=== PATIENT | female | born 1960 | race Caucasian/White ===

== ENCOUNTER 2024-05-11 15:02 | Inpatient (IN) | payer MEDICARE, SELFPAY ==
[2024-05-11 15:03] VITALS: BP 104/65; PULSE 114; RESP 15; TEMP 37.2; O2SAT 94
[2024-05-11 15:04] VITALS: PULSE 113; RESP 20; O2SAT 95; BMI 21.2
[2024-05-11 16:33] VITALS: PULSE 104; RESP 20; O2SAT 95
--- NOTE | 2024-05-11 16:37 | PD.EDRME ---
Rapid Medical Screening Exam RME Arrival date/time: 05/11/24 15:02 This is a 63-year-old female that comes in with complaints of weakness, diarrhea, fever, headache, cough, dizziness, and congestion. Symptoms started about 4 days ago. Patient states it is hard for her to walk because she does not feel steady on her feet. Patient has had history of hypothyroidism, high blood pressure, and carpal tunnel. Patient denies chest pain and shortness of breath. I have greeted and performed a focused initial assessment of this patient. Initial appropriate labs ordered at this time. A comprehensive ED assessment and evaluation of the patient and analysis of all test and completion of medical decision making process will be conducted by additional ED provider. Chief Complaint: Weakness Time Seen by Provider: 05/11/24 16:29 Vital signs: Vital Signs Temperature 98.9 F 05/11/24 15:03 Pulse Rate 114 H 05/11/24 15:03 Respiratory Rate 15 05/11/24 15:03 Blood Pressure 104/65 05/11/24 15:03 Pulse Oximetry (%) 94 L 05/11/24 15:03 Oxygen Delivery Method Room Air 05/11/24 15:03
--- NOTE | 2024-05-11 16:39 | XR_ITS ---
Examination: PA lateral chest 2 views Technique: Upright PA lateral chest 2 views Exam date and time: May 11, 2024 1708 hrs. Indications: Onset chest pain today. Findings: The patient's prominent pectus deformity accentuates the left ventricular contour No pneumonia or pulmonary edema The osseous structures otherwise are intact Impression: No pneumonia or pulmonary edema
[2024-05-11 17:07] LABS: Basophils # (Auto) 0.1 Thou/mm3 (0.0-0.2); Basophils % (Auto) 1 % (0-2.5); Eosinophils % (Auto) 0 % (0-10); Hematocrit 38.8 % (36.0-46.0); Hemoglobin 14.3 g/dL (12.0-16.0); Immature Granulocytes % (Auto) 1 % (0-0); Immature Granulocytes Auto 0.05 Thou/mm3 (0.00-0.00); Lymphocytes % (Auto) 14 % (10-50); Mean Corpuscular HGB Conc 36.9 g/dl (31.0-37.0); Mean Corpuscular Hemoglobin 33.3 pg (25.0-35.0); Mean Corpuscular Volume 90 fL (80-100); Monocytes # (Auto) 0.8 Thou/mm3 (0.0-0.8); Monocytes % (Auto) 12 % (0-12); Neutrophils # (Auto) 5.1 Thou/mm3 (1.8-7.7); Neutrophils % (Auto) 73 % (37-80); Nucleated Red Blood Cell % 0 /100 WBC (0); Platelet Count 170 Thou/mm3 (140-440); RDW Standard Deviation 40.8 fL (36.4-46.3); Red Blood Count 4.29 Miln/mm3 (4.00-5.20)
[2024-05-11 17:18] LABS: Alanine Aminotransferase 31 U/L (10-49); Albumin, Serum 4.8 gm/dL (3.4-4.8); Albumin/Globulin Ratio 1.5 (1.2-2.2); Alkaline Phosphatase 64 U/L (46-116); Anion Gap 8 (7-16); Aspartate Amino Transferase 71 U/L (0-34); BUN/Creatinine Ratio 18 Ratio (12-20); Bilirubin,Total 0.5 mg/dL (0.3-1.2); Blood Urea Nitrogen 18 mg/dL (9-23); Calcium 9.2 mg/dL (8.3-10.6); Calcium (Corrected) 9.2 mg/dL (8.5-10.1); Carbon Dioxide 23.9 mMol/L (20.0-31.0); Chloride 88 mMol/L (98-107); Estimated Creatinine Clearance 46.1 mL/min (>60); Globulin 3.1 gm/dL (2.3-3.5); Glucose 118 mg/dL (74-106); Osmolality,Calculated 245 (275-295); Potassium 3.4 mMol/L (3.4-5.1); Sodium 120 mMol/L (136-145); Total Protein 7.9 gm/dL (5.7-8.2); Troponin I < 0.020 ng/mL (0.0-0.045); eGFR > 60 See Note
[2024-05-11 18:05] LABS: B-Type Natriuretic Peptide 26 pg/mL (0-100)
[2024-05-11 19:48] LABS: Collection Type, Urine Voided
[2024-05-11 20:07] LABS: Bacteria,Urine 1+; Bilirubin,Urine Negative (Negative); Blood,Urine 1+ (Negative); Clarity,Urine Turbid (Clear/Hazy); Color,Urine Yellow (Lt Yel-Yel); Culture Indicated,Urine Contaminated; Glucose, Urine Negative (Negative); Hyaline Casts,Urine < 1 /hpf (0-1); Ketones,Urine Negative (Negative); Leukocyte Esterase,Urine Positive (Negative); Nitrite,Urine Negative (Negative); PH,Urine 5.5 (5.0-7.0); Protein,Urine 2+ (Neg - Trace); RBC,Urine 35 /hpf (0-3); Squamous Epithelial Cell,Urine 32 /hpf (0-5); Urobilinogen,Urine Negative mg/dL (0.0-1.0); WBC,Urine 107 /hpf (0-5)
[2024-05-11 20:14] LABS: Amphetamine/Methamp Scrn,U Negative (Negative); Barbiturate Screen,Urine Negative (Negative); Benzodiazepines Screen,Urine Negative (Negative); Benzoylecgonine Screen, Ur Negative (Negative); Fentanyl Screen,Urine Negative (Negative); Opiate Screen,Urine Negative (Negative); THC Screen,Urine Negative (Negative)
--- NOTE | 2024-05-11 20:55 | XR_ITS ---
Examination: CT brain head without contrast. 2-D sagittal coronal reconstructions Date and time of exam:May 11, 2024 2117 hrs. Indications: Onset headaches and balance difficulties dizziness hand numbness difficulty walking 4 days CTDI: vol (mGy):44.88 DLP: (mGycm):899 Technique: Multiple CT axial sections of the brain have been obtained, 5 mm slice thickness. Contrast has not been administered. 2-D sagittal, coronal reconstructions have been obtained Low dose protocols were performed. One or more of the following dose reduction techniques were used; automated exposure control, adjustment of the mA and/or KV according to patient size, use of iterative reconstruction technique. Findings: No significant ventricular enlargement. Intra-axial or extra-axial hemorrhage density is not seen. No mass effect or midline shift Basal cisterns are not remarkable. Fourth ventricle is midline. Cranial vault intact. Impression: Negative for acute hemorrhage, mass effect or midline shift If symptoms persist, consider brain MRI follow-up, stroke protocol
--- NOTE | 2024-05-11 20:56 | EDNOTE_ITS ---
ED General RME/HPI General Chief complaint: Weakness Stated complaint: WEAKNESS Time Seen by Provider: 05/11/24 16:29 Arrival date/time: 05/11/24 15:02 CC: Weakness, unsteady gait HPI ongoing for the past 4 days denies shortness of breath or difficulty but states she has had an intermittent fever at home denies any neck stiffness intermittent headache when she coughs. Patient still continues to smoke a pack to a pack and a half of cigarettes a day x 50 years. Patient denies any painful urination bloody urination chest pain shortness of breath or difficulty breathing. RME / HPI RME / HPI narrative: 05/11/24 15:02 This is a 63-year-old female that comes in with complaints of weakness, diarrhea, fever, headache, cough, dizziness, and congestion. Symptoms started about 4 days ago. Patient states it is hard for her to walk because she does not feel steady on her feet. Patient has had history of hypothyroidism, high blood pressure, and carpal tunnel. Patient denies chest pain and shortness of breath. I have greeted and performed a focused initial assessment of this patient. Initial appropriate labs ordered at this time. A comprehensive ED assessment and evaluation of the patient and analysis of all test and completion of medical decision making process will be conducted by additional ED provider. Review of Systems Review of Systems Narrative Review of Systems: GEN: No fever, no chills, no weight loss EYES: No discharge, no visual changes, no pain HEENT: No ear pain, no congestion, no sore throat PULM: No shortness of breath, no cough, no congestion CV: No chest pain, no dyspnea on exertion, no palpitations GI: No nausea, no vomiting, no diarrhea, no pain, no constipation : No frequency, no urgency, no dysuria MUSC/SKEL: No joint pain, no back pain SKIN: No rash PSYCH: No hallucinations, no depression HEME/LYMPH: No easy bleeding or bruising tendencies NEURO: + weakness, no headache Past Medical History Social History SMOKING STATUS: Current every day smoker ED Exam Narrative Physical exam: [General: Thin but not emaciated not in any acute distress Head normocephalic HEENT: Eyes pupils are PERRLA EOMs intact nose no rhinorrhea epistaxis mouth pink dry membranes uvula is midline symmetrical swallow phonation is normal all other subsystems of HEENT are within acceptable limits Neck is supple nontender Chest equal chest rise nontender to palpation Respiratory: Clear to auscultation no wheezes crackles or rubs CV: Rate rhythm is regular no murmurs rubs or clicks Abdomen is soft nontender no masses positive bowel sounds all 4 quadrants Back: No CVA tenderness no spinous process tenderness from cervical spine thoracic and lumbar spine Skin: Intact no petechiae rash induration ulceration or crepitus Extremities: Moving all extremity against resistance cap refill less than 2 seconds neurosensory intact Neuro: Awake alert oriented x3 Glascow coma 15 no focal deficits] Course Course Course Narrative: Patient is laboratories all to clinic finding discussed with resident for Dr. Trevino who agrees to accept the patient for admission Quality Measures none Orders Category Date Time Status EKG (ED ONLY) *Do not use* NOW Care 05/11/24 16:39 Completed Saline [Insert IV] NOW Care 05/11/24 20:[address] head/brain wo con Stat Exams 05/11/24 20:55 Completed EKG (ED Only) Stat Exams 05/11/24 16:39 Ordered XR chest 2V Stat Exams 05/11/24 16:39 Completed BNP [B-Type Natriuretic Peptide] Stat Lab 05/11/24 16:54 Completed CBC Stat Lab 05/11/24 16:54 Completed Comprehensive Metabolic Panel Stat Lab 05/11/24 16:54 Completed Drug Screen,Urine Stat Lab 05/11/24 19:40 Completed TSH [Thyroid Stimulating Hormone] Stat Lab 05/11/24 20:58 Ordered Troponin I Stat Lab 05/11/24 16:54 Completed Urinalysis, C/S if Indicated Stat Lab 05/11/24 19:40 Completed Sodium Chloride 0.9% 1000 ml [Ns] 1,000 ml Med 05/11/24 20:48 Active IV 30 mls/hr cefTRIAXone/D5w 1gm IV premix [Rocephin/D5w 1gm IV Med 05/11/24 20:48 Discontinued premix] 50 ml IV X1 Vital Signs Vital signs: Vital Signs Temperature 98.9 F 05/11/24 15:03 Pulse Rate 114 H 05/11/24 15:03 Respiratory Rate 15 05/11/24 15:03 Blood Pressure 104/65 05/11/24 15:03 Pulse Oximetry (%) 94 L 05/11/24 15:03 Oxygen Delivery Method Room Air 05/11/24 15:03 [facility] Patient data External records reviewed:: [facility] previous records Clinical information provided by:: patient Social determinants that could affect healthcare access:: none Patient has the following chronic illnesses:: Hypothyroidism How is presenting disease/condition affected by chronic disease/condition?: u neffected by Evaluation data The following diagnostics were reviewed and interpreted by me:: lab results and radiology exam(s) Lab and/or radiology exams considered but not ordered:: CBC shows no acute leukocytosis anemia thrombocytopenia CMP shows a sodium of 120 potassium 3.4 chloride of 88 CO2 of 23.9 BUN of 18 creatinine of 1.0 glucose of 118 No transaminitis or T. bili elevation Troponin is negative BNP is negative Chest x-ray as interpreted by me and read by radiology as negative for any acute finding Urine is positive for urinary tract infection. Interpretation Summary: Significant hyponatremia with UTI Medications Medications considered but not ordered:: None Medication administrations:: Medication Administration History Sodium Chloride (Ns) 1,000 mls @ 30 mls/hr IV .Q24H BRIE Stop: 05/12/24 20:47 Discontinued Medications Ceftriaxone Sodium/Dextrose (Rocephin/D5w 1gm Iv Premix) 50 mls @ 100 mls/hr IV X1 ONE Stop: 05/11/24 21:17 None Consultations Consultation(s) initiated? (list below): No Diagnosis Differential Diagnosis ED Complaint MDM: Hyponatremia UTI hydrocephalus Most likely diagnosis given after review of the tests above:: Hyponatremia UTI Admission Indicated Admission indicated?: indicated Explain why admission is indicated or not indicated:: Requires further medical management Admission Request Was there a request for admission?: No Disposition Plan Disposition Plan: Admit Medical Decision Making Differential Diagnosis Differential Diagnosis: Hyponatremia UTI hydrocephalus Lab Data 05/11/24 16:54 05/11/24 16:54 Labs: Lab Results 05/11/24 05/11/24 Range/Units 16:54 19:40 WBC 7.0 (3.6-11.0) Thou/mm3 RBC 4.29 (4.00-5.20) Miln/mm3 Hgb 14.3 (12.0-16.0) g/dL Hct 38.8 (36.0-46.0) % MCV 90 (80-100) fL MCH 33.3 (25.0-35.0) pg MCHC 36.9 (31.0-37.0) g/dl RDW Std Deviation 40.8 (36.4-46.3) fL Plt Count 170 (140-440) Thou/mm3 Neut % (Auto) 73 (37-80) % Lymph % (Auto) 14 (10-50) % Mccormick % (Auto) 12 (0-12) % Eos % (Auto) 0 (0-10) % Baso % (Auto) 1 (0-2.5) % Neut # (Auto) 5.1 (1.8-7.7) Thou/mm3 Lymph # (Auto) 1.0 (1.0-4.8) Thou/mm3 Mccormick # (Auto) 0.8 (0.0-0.8) Thou/mm3 Eos # (Auto) 0.0 (0.0-0.5) Thou/mm3 Baso # (Auto) 0.1 (0.0-0.2) Thou/mm3 Immature Gran # (Auto) 0.05 H (0.00-0.00) Thou/mm3 Absolute Nucleated RBC 0.00 (0.00-0.00) Thou/mm3 Immature Gran % 1 H (0-0) % Nucleated RBC % 0 (0) /100 WBC Sodium 120 L (136-145) mMol/L Potassium 3.4 (3.4-5.1) mMol/L Chloride 88 L (98-107) mMol/L Carbon Dioxide 23.9 (20.0-31.0) mMol/L Anion Gap 8 (7-16) BUN 18 (9-23) mg/dL Creatinine 1.0 (0.6-1.3) mg/dL Estim Creat Clear Calc 46.1 L (>60) mL/min eGFR > 60 (60 - ) See Note BUN/Creatinine Ratio 18 (12-20) Ratio Glucose 118 H (74-106) mg/dL Calculated Osmolality 245 L (275-295) Calcium 9.2 (8.3-10.6) mg/dL Corrected Calcium 9.2 (8.5-10.1) mg/dL Total Bilirubin 0.5 (0.3-1.2) mg/dL AST 71 H (0-34) U/L ALT 31 (10-49) U/L Alkaline Phosphatase 64 (46-116) U/L Troponin I < 0.020 (0.0-0.045) ng/mL B-Natriuretic Peptide 26 (0-100) pg/mL Total Protein 7.9 (5.7-8.2) gm/dL Albumin 4.8 (3.4-4.8) gm/dL Globulin 3.1 (2.3-3.5) gm/dL Albumin/Globulin Ratio 1.5 (1.2-2.2) TSH Cancelled Ur Collection Type Voided Urine Color Yellow (Lt Yel-Yel) Urine Clarity Turbid A (Clear/Hazy) Urine pH 5.5 (5.0-7.0) Ur Specific [place] 1.020 (1.001-1.035) Urine Protein 2+ A (Neg - Trace) Urine Glucose (UA) Negative (Negative) Urine Ketones Negative (Negative) Urine Blood 1+ A (Negative) Urine Nitrite Negative (Negative) Urine Bilirubin Negative (Negative) Urine Urobilinogen (Auto) Negative (0.0-1.0) mg/dL Ur Leukocyte Esterase Positive (Negative) Urine RBC 35 H (0-3) /hpf Urine WBC 107 H (0-5) /hpf Ur Squamous Epith Cells 32 H (0-5) /hpf Urine Bacteria 1+ A (None) Hyaline Casts < 1 (0-1) /hpf Ur Culture Indicated? Contaminated Urine Opiates Screen Negative (Negative) Urine Fentanyl Screen Negative (Negative) Ur Barbiturates Screen Negative (Negative) U Amphetamin/Meth Scrn Negative (Negative) U Benzodiazepines Scrn Negative (Negative) U Cocaine Metab Screen Negative (Negative) U Marijuana (THC) Screen Negative (Negative) Discharge Plan Plan Patient Disposition: Other Care w/in Hosp ([facility]) Patient condition on transfer: Stable Prescriptions/Referrals Referrals: Gopi Garcia DO [Primary Care Provider] - In 1 week Problem List Clinical Impression: Hyponatremia, UTI (urinary tract infection) Patient/Caregiver Discharge Instructions Print Language: Ethiopian Stand Alone Forms: Pita Award Info., Patient Portal Info Letter PA/DIAGNOSTIC IMAGING MANAGER Supervising Physician PA/DIAGNOSTIC IMAGING MANAGER Supervising Physician: Chato Bobby ENP
--- NOTE | 2024-05-11 22:34 | PD.RESHP ---
Documentation for date of: 05/11/24 [facility] History of Present Illness History of present illness: The patient is a 64-year-old female with a past medical history of hypertension and hypothyroidism status post thyroidectomy presented to the ED on 05/11/2024 with a 4-day history of generalized weakness. Per patient, she was in her usual state of health until about 4 days ago when she noticed that she got progressively weaker, starting her arms associated with some numbness, causing her to drop things and being unable to hold certain things. As she got progressively weaker, he started involving her legs and she has been unable to walk about 3 days. Prior to this, patient was ambulating independently and was able to perform all activities of daily living by herself. She endorses occasional headaches and lightheadedness but denies nausea vomiting, abdominal pain, diarrhea or dysuria. She also denies loss of sensation or any visual or auditory changes. ED course: The ED, patient was afebrile, normotensive however tachycardic and saturating 95% on room air. Chest x-ray was done which was negative as well as head CT. Labs are significant for sodium of 120 with osmolality of 245 and low chloride of 88, glucose 118, AST 71. UA showed turbid urine with 2+ protein and 1+ blood, 3-5 RBCs, 107 WBCs and 1+ bacteria. U-Tox was negative. The patient has been admitted for management of moderate hyponatremia. PMHx-hypertension, hypothyroidism PSHx-thyroidectomy Social history- smokes a pack of cigarettes a day, drinks a couple beers daily, no illicit drugs Home meds- Losartan-HCTZ, Levothyroxine Review of Systems Review of Systems Narrative Review of Systems: GENERAL: Admits generalized weakness HEENT: Denies headache or visual/hearing changes. Denies nasal discharge. NEURO: Admits unusual weakness but denies difficulty speaking. CARDIO: Denies chest pain or palpitations. PULM: Denies SOB, coughing, or wheezing. GI: Denies abdominal pain, N/V/C/D/reflux/gas, bright red blood per rectum or melena. Reports having BMs. URO: Denies burning/itching/pain/urinary changes. MSK/EXT/SKIN: Denies joint/skeletal/muscle pain, issues/changes in upper or lower extremities, itchiness, or superficial pain. Exam Vital Signs Temp Pulse Resp BP Pulse Ox O2 Del Method 98.9 F 104 H 20 104/65 95 Room Air 05/11/24 15:03 05/11/24 16:33 05/11/24 16:33 05/11/24 15:03 05/11/24 16:33 05/11/24 16:33 Narrative Exam GENERAL: AAOX3 NEURO: Able to move extremities x 4, 4-/5 strength in right lower extremity and 4+ out of 5 strength in right lower extremity, intact reflexes, no loss of sensation. HEENT: Moist mucosa. Eyes open, symmetrical, & clear CARDIO: No chest pain on palpation. Heart RRR, no obvious murmurs PULM: No noted coughing/dyspnea. Lungs CTA B/L GI: Abdomen soft, nondistended, no pain on palpation. BSx4 URO/ALTERNATIVE MEDICINE PRACTITIONER:: No further abnormalities noted. SKIN/MSK/EXT: No wounds/rashes/edema/amputations, no pain on palpation. Pedal pulses present B/L Results: Labs 05/11/24 16:54 05/11/24 16:54 Labs: Short CBC 05/11/24 Range/Units 16:54 WBC 7.0 (3.6-11.0) Thou/mm3 Hgb 14.3 (12.0-16.0) g/dL Hct 38.8 (36.0-46.0) % Plt Count 170 (140-440) Thou/mm3 [facility] 05/11/24 16:54 Sodium 120 L Potassium 3.4 Chloride 88 L Carbon Dioxide 23.9 BUN 18 Creatinine 1.0 Glucose 118 H Calcium 9.2 Cardiac Enzymes 05/11/24 Range/Units 16:54 Troponin I < 0.020 (0.0-0.045) ng/mL Liver Function 05/11/24 Range/Units 16:54 Total Bilirubin 0.5 (0.3-1.2) mg/dL AST 71 H (0-34) U/L ALT 31 (10-49) U/L Alkaline Phosphatase 64 (46-116) U/L Albumin 4.8 (3.4-4.8) gm/dL Urine 05/11/24 Range/Units 19:40 Urine Color Yellow (Lt Yel-Yel) Urine Clarity Turbid A (Clear/Hazy) Urine pH 5.5 (5.0-7.0) Ur Specific [place] 1.020 (1.001-1.035) Urine Protein 2+ A (Neg - Trace) Urine Glucose (UA) Negative (Negative) Quality Measures Quality Measures none Medications Home Medications and Allergies Allergies Allergy/AdvReac Type Severity Reaction Status Date / Time No Known Allergies Allergy Verified 05/11/24 22:30 Visit Medications Acetaminophen (Acetaminophen 325 Mg Tablet) 650 mg PO Q6H PRN PRN Reason: Pain 1-3 or Fever >100.3 Stop: 06/10/24 22:20 Heparin Sodium (Porcine) (Heparin Sod Inj 5000 Unit/Ml Vial) 5,000 unit SC Q12HR BRIE Stop: 05/26/24 08:59 Sodium Chloride (Ns) 1,000 mls @ 30 mls/hr IV .Q24H BRIE Stop: 05/12/24 20:47 Ondansetron HCl (Ondansetron Inj 2 Mg/Ml Inj 2 Ml) 4 mg IV Q6H PRN; Protocol PRN Reason: NAUSEA OR VOMITING Stop: 06/10/24 22:20 Sennosides (Senna Tablet) 1 tab PO QDAY BRIE; Protocol Stop: 06/11/24 08:59 Discontinued Medications Ceftriaxone Sodium/Dextrose (Rocephin/D5w 1gm Iv Premix) 50 mls @ 100 mls/hr IV X1 ONE Stop: 05/11/24 21:17 Assessment & Plan Assessment Summary: The patient is a 64-year-old female with a past medical history of hypertension and hypothyroidism status post thyroidectomy who presented to the ED on 05/11/2024 with a 4-day history of generalized weakness. #Generalized weakness #Moderate hyponatremia The patient presented with 4-day history of generalized weakness, initially starting in the upper extremities and progressively to the lower extremities. She reports that she notices that she had some numbness in her arms causing her to drop things unable to hold anything. Prior to this, patient was ambulating independently, she endorsed occasional headaches and lightheadedness but denied nausea vomiting, abdominal pain diarrhea or dysuria. In the ED, patient was afebrile however tachycardic. Chest x-ray and CT head were negative. Labs are significant for hyponatremia of with sodium of 120 and osmolality of 245, glucose at 118. Patient denied drinking excessive amount of water and was euvolemic. For hypertension, patient was on losartan-hydrochlorothiazide. She received 1L of NS in the ED. Plan: -Admit to telemetry -BMP stat -Hold losartan hydrochlorothiazide -Fluid restriction -Sodium check every 4 hours -Urine electrolytes and osmolality -Physical therapy #Asymptomatic bacteriuria On admission, urinalysis reviewed turbid urine with positive esterase, 35 RBC, 107 WBCs, 1+ bacteria. Patient denies dysuria or any other urinary symptoms. She did receive 1 dose of IV ceftriaxone in the ED Plan: -No further intervention #History of hypothyroidism #Status post thyroidectomy The patient has a history of hypothyroidism, had a thyroidectomy about 2 years ago and is on levothyroxine 75 mcg daily. Plan: -TSH -Resume levothyroxine Health maintenance: Dispo: Tele Diet: Cardiac with fluid restriction modification DVT: SC Heparin [place]aval[place]: None Lines: Peripheral Med Rec: Pending, f/u PT: Ordered Code: Full Case was discussed with attending physician, Dr Uriel Feliciano MD PGY-1
[2024-05-11] MEDS: SODIUM CHLORIDE 0.9% 1000 ML 1,000 ML 30 ML IV (22:55)
[2024-05-11] MEDS: cefTRIAXone/D5w 1gm IV premix 50 ML IV (22:56)
[2024-05-11 23:00] VITALS: BP 109/60; PULSE 87; RESP 16; TEMP 37.3; O2SAT 96
[2024-05-11] MEDS: SODIUM CHLORIDE 0.9% 1000 ML 1,000 ML 75 ML IV (23:26)
[2024-05-12] VITALS (12 sets, daily range): BP systolic 108–128; BP diastolic 54–70; PULSE 90–98; RESP 17–98; TEMP 36.8–37.5; O2SAT 93–94; BMI 22.6
[2024-05-12 00:37] LABS: Thyroid Stimulating Hormone 0.52 uIU/mL (0.55-4.78)
[2024-05-12 00:39] LABS: BUN/Creatinine Ratio 14 Ratio (12-20); Blood Urea Nitrogen 20 mg/dL (9-23); Calcium 8.5 mg/dL (8.3-10.6); Carbon Dioxide 21.7 mMol/L (20.0-31.0); Chloride 89 mMol/L (98-107); Creatinine (Component) 1.4 mg/dL (0.6-1.3); Glucose 100 mg/dL (74-106); Potassium 3.6 mMol/L (3.4-5.1); eGFR 43 See Note
[2024-05-12 00:40] LABS: Anion Gap 8 (7-16); Osmolality,Calculated 242 (275-295)
[2024-05-12 00:46] LABS: Sodium 119 mMol/L (136-145)
[2024-05-12 01:15] LABS: Chloride,Urine Random < 20.0 mMol/L (55.0-125.0); Potassium,Urine Random 77 mMol/L (12-62); Sodium,Urine Random < 10.0 mMol/L (20.0-110.0)
[2024-05-12 05:53] LABS: Basophils # (Auto) 0.1 Thou/mm3 (0.0-0.2); Basophils % (Auto) 1 % (0-2.5); Eosinophils # (Auto) 0.1 Thou/mm3 (0.0-0.5); Eosinophils % (Auto) 1 % (0-10); Hematocrit 35.1 % (36.0-46.0); Hemoglobin 12.8 g/dL (12.0-16.0); Immature Granulocytes % (Auto) 1 % (0-0); Immature Granulocytes Auto 0.03 Thou/mm3 (0.00-0.00); Lymphocytes # (Auto) 1.1 Thou/mm3 (1.0-4.8); Lymphocytes % (Auto) 18 % (10-50); Mean Corpuscular HGB Conc 36.5 g/dl (31.0-37.0); Mean Corpuscular Hemoglobin 32.7 pg (25.0-35.0); Mean Corpuscular Volume 90 fL (80-100); Monocytes # (Auto) 0.8 Thou/mm3 (0.0-0.8); Monocytes % (Auto) 13 % (0-12); Neutrophils % (Auto) 67 % (37-80); Nucleated Red Blood Cell % 0 /100 WBC (0); Platelet Count 143 Thou/mm3 (140-440); RDW Standard Deviation 39.5 fL (36.4-46.3); Red Blood Count 3.92 Miln/mm3 (4.00-5.20)
[2024-05-12 06:35] LABS: Alanine Aminotransferase 27 U/L (10-49); Albumin, Serum 4.2 gm/dL (3.4-4.8); Albumin/Globulin Ratio 1.6 (1.2-2.2); Alkaline Phosphatase 54 U/L (46-116); Anion Gap 11 (7-16); Aspartate Amino Transferase 48 U/L (0-34); BUN/Creatinine Ratio 25 Ratio (12-20); Bilirubin,Total 0.3 mg/dL (0.3-1.2); Blood Urea Nitrogen 25 mg/dL (9-23); Calcium 8.1 mg/dL (8.3-10.6); Calcium (Corrected) 8.1 mg/dL (8.5-10.1); Carbon Dioxide 19.3 mMol/L (20.0-31.0); Cardiac Risk Estimate 4.3 RATIO (3.7-5.6); Chloride 91 mMol/L (98-107); Cholesterol 133 mg/dL (132-200); Estimated Creatinine Clearance 46.1 mL/min (>60); Globulin 2.7 gm/dL (2.3-3.5); Glucose 91 mg/dL (74-106); HDL Cholesterol 31 mg/dL (40-60); LDL Cholesterol,Calculated 84 mg/dL (0-130); Magnesium 1.7 mg/dL (1.6-2.6); Osmolality,Calculated 248 (275-295); Phosphorous 3.7 mg/dL (2.4-5.1); Potassium 3.2 mMol/L (3.4-5.1); Sodium 121 mMol/L (136-145); Total Protein 6.9 gm/dL (5.7-8.2); Triglycerides 91 mg/dL (30-150); eGFR > 60 See Note
[2024-05-12 09:53] LABS: Free T4 (Free Thyroxine) 1.04 ng/dL (0.89-1.76)
--- NOTE | 2024-05-12 10:25 | PC.SS ---
Patient is alert/oriented. Patient resides with spouse. Admitted for moderate hyponatremia. Patient states she's independent with ADL's. Patient states she uses [facility]. Patient states her spouse transports her to appointments. Patient follows with Dr. Garcia in [place]. Last appt. was 3 months ago. D/c plan is to return home. Spouse is alt medical decision maker.
[2024-05-12] MEDS: CALCIUM CARBONATE 600 MG TABLET PO (10:36)
[2024-05-12] MEDS: HEPARIN SOD INJ 5000 UNIT/ML VIAL SC ×2 (10:36→20:07)
[2024-05-12] MEDS: SODIUM CHLORIDE 0.9% 1000 ML 1,000 ML 100 ML IV (10:36)
[2024-05-12] MEDS: POTASSIUM CHLORIDE 20 mEq TABCR 40 MEQ PO (10:36)
[2024-05-12] MEDS: SENNA TABLET 1 TAB PO (10:36)
[2024-05-12] MEDS: Magnesium Sulfate 2 GM Ivpb 2 GM/50 ML BAG IV (10:37)
[2024-05-12 10:40] LABS: Anion Gap 11 (7-16); BUN/Creatinine Ratio 26 Ratio (12-20); Blood Urea Nitrogen 23 mg/dL (9-23); Calcium 8.4 mg/dL (8.3-10.6); Calcium (Corrected) 8.4 mg/dL (8.5-10.1); Carbon Dioxide 18.4 mMol/L (20.0-31.0); Chloride 94 mMol/L (98-107); Creatinine (Component) 0.9 mg/dL (0.6-1.3); Estimated Creatinine Clearance 51.3 mL/min (>60); Glucose 98 mg/dL (74-106); Osmolality,Calculated 251 (275-295); Potassium 3.3 mMol/L (3.4-5.1); Sodium 123 mMol/L (136-145); eGFR > 60 See Note
[2024-05-12] MEDS: NICOTINE PATCH 21 MG/24 HR PATCH.TD24 TOP (12:57)
--- NOTE | 2024-05-12 12:58 | ESPR_ITS ---
<Statement entered by Los Dee DO - 05/12/24 17:21> Senior attestation: Patient was examined and case was reviewed with team including attending physician. Note reviewed, I agree with most of its contents and agree with the patient's care. Patient's sodium levels slowly improving, 123 however 120 on last repeat sodium level. Will continue IV fluids and trending sodium levels. Rocephin added for possible urinary tract infection, which may have contributed to patient's initial symptoms. Nicotine patch provided. Los Dee DO PGY-3 Documentation for date of: 05/12/24 Subjective Subjective Interval history: Patient was seen at bedside this morning. No overnight events. Patient stated that she still feels weak, but upon evaluation upper and lower extremity strength was 5 out of 5. Patient also states she does drink daily and was unsure when her last drink was but knows that it was not even a full can of beer prior to admission. She denies any feelings of anxiousness or tremors. Patient sodium up trended to 123. Start patient on Rocephin 1 g daily for UTI. Free T4 was 1.04. Ordered nicotine patch per patient and urine alcohol levels. Exam Vital Signs Temp Pulse Resp BP Pulse Ox O2 Del Method 99.5 F 98 17 108/54 L 93 L Room Air 05/12/24 11:28 05/12/24 11:28 05/12/24 11:28 05/12/24 11:28 05/12/24 11:28 05/12/24 11:28 Narrative Exam General: A/O x3, no acute distress, anxious appearing Eyes: PERRL, EOMI. Anicteric, vision grossly intact. Ears: No ear pain, no ear discharge, Hearing grossly intact. Nose: No nasal discharge. Mouth/Throat: Dry mucous membranes, missing dentation, no redness, no lesions. Neck: Neck supple, non-tender, no cervical lymphadenopathy. Lungs: Clear FRANCIE to auscultation and percussion, No accessory muscle use. Cardio: Normal S1/S2, regular rhythm, no murmurs, no JVD Abdomen: Soft, non-tender, no palpable masses, peristalsis present, no guarding or rebound. Extremities: Symmetrical, no significant deformities, no peripheral edema , non-tender, peripheral pulses presents. Skin: No rashes, no lesions, warm to touch. Neuro: No focal neurological deficits. motor and sensory intact. Psych: anxious Objective Labs 05/14/24 05:00 05/14/24 04:52 Labs: Laboratory Results - last 24 hr 05/11/24 05/11/24 05/11/24 16:54 19:40 22:50 WBC 7.0 RBC 4.29 Hgb 14.3 Hct 38.8 MCV 90 MCH 33.3 MCHC 36.9 RDW Std Deviation 40.8 Plt Count 170 Neut % (Auto) 73 Lymph % (Auto) 14 [place] % (Auto) 12 Eos % (Auto) 0 Baso % (Auto) 1 Neut # (Auto) 5.1 Lymph # (Auto) 1.0 [place] # (Auto) 0.8 Eos # (Auto) 0.0 Baso # (Auto) 0.1 Immature Gran # (Auto) 0.05 H Absolute Nucleated RBC 0.00 Immature Gran % 1 H Nucleated RBC % 0 Sodium 120 L Potassium 3.4 Chloride 88 L Carbon Dioxide 23.9 Anion Gap 8 BUN 18 Creatinine 1.0 Estim Creat Clear Calc 46.1 L eGFR > 60 BUN/Creatinine Ratio 18 Glucose 118 H Calculated Osmolality 245 L Calcium 9.2 Corrected Calcium 9.2 Phosphorus Magnesium Total Bilirubin 0.5 AST 71 H ALT 31 Alkaline Phosphatase 64 Troponin I < 0.020 B-Natriuretic Peptide 26 Total Protein 7.9 Albumin 4.8 Globulin 3.1 Albumin/Globulin Ratio 1.5 Triglycerides Cholesterol LDL Cholesterol, Calc HDL Cholesterol Cholesterol/HDL Ratio TSH Cancelled Free T4 Ur Collection Type Voided Urine Color Yellow Urine Clarity Turbid A Urine pH 5.5 Ur Specific [place] 1.020 Urine Protein 2+ A Urine Glucose (UA) Negative Urine Ketones Negative Urine Blood 1+ A Urine Nitrite Negative Urine Bilirubin Negative Urine Urobilinogen (Auto) Negative Ur Leukocyte Esterase Positive Urine RBC 35 H Urine WBC 107 H Ur Squamous Epith Cells 32 H Urine Bacteria 1+ A Hyaline Casts < 1 Ur Culture Indicated? Contaminated Ur Random Sodium < 10.0 L Ur Random Potassium 77 H Ur Random Chloride < 20.0 L Urine Opiates Screen Negative Urine Fentanyl Screen Negative Ur Barbiturates Screen Negative U Amphetamin/Meth Scrn Negative U Benzodiazepines Scrn Negative U Cocaine Metab Screen Negative U Marijuana (THC) Screen Negative 05/11/24 05/12/24 05/12/24 23:18 05:30 09:53 WBC 6.0 RBC 3.92 L Hgb 12.8 Hct 35.1 L MCV 90 MCH 32.7 MCHC 36.5 RDW Std Deviation 39.5 Plt Count 143 Neut % (Auto) 67 Lymph % (Auto) 18 [place] % (Auto) 13 H Eos % (Auto) 1 Baso % (Auto) 1 Neut # (Auto) 4.0 Lymph # (Auto) 1.1 [place] # (Auto) 0.8 Eos # (Auto) 0.1 Baso # (Auto) 0.1 Immature Gran # (Auto) 0.03 H Absolute Nucleated RBC 0.00 Immature Gran % 1 H Nucleated RBC % 0 Sodium 119 L* 121 L 123 L Potassium 3.6 3.2 L 3.3 L Chloride 89 L 91 L 94 L Carbon Dioxide 21.7 19.3 L 18.4 L Anion Gap 8 11 11 BUN 20 25 H 23 Creatinine 1.4 H 1.0 0.9 Estim Creat Clear Calc 33.0 L 46.1 L 51.3 L eGFR 43 L > 60 > 60 BUN/Creatinine Ratio 14 25 H 26 H Glucose 100 91 98 Calculated Osmolality 242 L 248 L 251 L Calcium 8.5 8.1 L 8.4 Corrected Calcium 8.1 L 8.4 L Phosphorus 3.7 3.0 Magnesium 1.7 Total Bilirubin 0.3 AST 48 H ALT 27 Alkaline Phosphatase 54 Troponin I B-Natriuretic Peptide Total Protein 6.9 Albumin 4.2 D 4.0 Globulin 2.7 Albumin/Globulin Ratio 1.6 Triglycerides 91 Cholesterol 133 LDL Cholesterol, Calc 84 HDL Cholesterol 31 L Cholesterol/HDL Ratio 4.3 TSH 0.52 L Free T4 1.04 Ur Collection Type Urine Color Urine Clarity Urine pH Ur Specific [place] Urine Protein Urine Glucose (UA) Urine Ketones Urine Blood Urine Nitrite Urine Bilirubin Urine Urobilinogen (Auto) Ur Leukocyte Esterase Urine RBC Urine WBC Ur Squamous Epith Cells Urine Bacteria Hyaline Casts Ur Culture Indicated? Ur Random Sodium Ur Random Potassium Ur Random Chloride Urine Opiates Screen Urine Fentanyl Screen Ur Barbiturates Screen U Amphetamin/Meth Scrn U Benzodiazepines Scrn U Cocaine Metab Screen U Marijuana (THC) Screen Quality Measures Quality Measures none Assessment & Plan Assessment Current Active Medications: Generic Name Dose Route Start Last Admin Trade Name Freq PRN Reason Stop Dose Admin Acetaminophen 650 mg 05/11/24 22:21 Acetaminophen 325 Mg Tablet PO 06/10/24 22:20 Q6H PRN Pain 1-3 or Fever >100.3 Heparin Sodium (Porcine) 5,000 unit 05/12/24 09:00 05/12/24 10:36 Heparin Sod Inj 5000 Unit/Ml Vial SC 05/26/24 08:59 5,000 unit Q12HR BRIE Administration Sodium Chloride 1,000 mls @ 100 mls/hr 05/12/24 07:33 05/12/24 10:36 Ns IV 05/12/24 17:32 100 mls/hr .Q10H BRIE Administration Ceftriaxone Sodium/Dextrose 50 mls @ 100 mls/hr 05/12/24 21:00 Rocephin/D5w 1gm Iv Premix IV 05/19/24 20:59 HS BRIE Nicotine 21 mg 05/12/24 12:15 05/12/24 12:57 Nicotine Patch 21 Mg/24 Hr Patch.Td24 TOP 06/11/24 12:14 21 mg QDAY BRIE Administration Ondansetron HCl 4 mg 05/11/24 22:21 Ondansetron Inj 2 Mg/Ml Inj 2 Ml IV 06/10/24 22:20 Q6H PRN NAUSEA OR VOMITING Protocol Sennosides 1 tab 05/12/24 09:00 05/12/24 10:36 Senna Tablet PO 06/11/24 08:59 1 tab QDAY BRIE Administration Protocol Zolpidem Tartrate 5 mg 05/12/24 00:47 Zolpidem 5 Mg Tablet PO 06/11/24 00:46 HS PRN Insomnia Plan 63-year-old female with past medical history of hypertension hypothyroidism s/p thyroidectomy was admitted to hospital on 05/11/2024 due to hypoosmolar hyponatremia associated with generalized weakness. #Hypoosmolar hyponatremia #Generalized weakness ?Patient came in with generalized weakness and a sodium of 120. ? Patient was on the hydrochlorothiazide at home ? DDx medication induced versus SIADH versus dehydration versus beer potomnia versus polydipsia ?Urine electrolytes showed random sodium less than 10, random potassium 77, and random chloride less than 20 Plan: ? Holding hydrochlorothiazide ?Continue normal saline at 100 cc/h ? Renal function panel every 4 ? Sodium goal correction of 4-6 in the first 24 hours with goal of 126 at 16:54 today ? Physical therapy ordered ? Will continue to monitor #UTI ? Patient's UA was positive for bacteria ? There was no leukocytosis or signs of sepsis. Plan: ? Started Rocephin 1 g daily [05/12/2024?] ?Pending urine culture #Hypertension ?Patient's blood pressure has been on the lower end in the 100s over 60s during her hospital stay Plan: Will hold off on any antihypertensive medication for now as patient blood pressure has been well-controlled #Hypothyroidism s/p thyroidectomy ? TSH 0.52 and free T4 1.04 On this admission Plan: ?Will restart patient's levothyroxine 75mcg qday #Alcohol use disorder ? Patient stated that she drinks daily a couple beers ? Patient stated that she had less than 1 can of beer on the day prior to admission. Plan: ? Urine alcohol levels ordered ? Will consider starting CIWA protocol based on urine alcohol levels. #Active Smoker -States smokes 1ppd -Ordered nicotine patch 21 -counseled on importance to quit smoking Disposition: Patient seen in med surg, monitoring Na+ q4h, NS 1L at 100cc/hr. Diet: cardiac GI prophylaxis: not indicated DVT prophylaxis: Heparin sc Code: Full Case disclosed with Attending Dr. Esquivel and My senior Dr. Lambert PGY2 and Dr. Dee PGY3. Durga Calix PGY1 L Ms. Bonilla is a 63-year-old female with past medical history of essential hypertension, hypothyroidism s/p thyroidectomy who was hospitalized on 05/11 for generalized weakness secondary to hypotonic hyponatremia. On admission, patient sodium was 119, with low osmolality. Patient was started on normal saline at 100 cc/h by night team, with every 4 hourly sodium checks. Goal correction 4?6, not crossing 8 mmol/L in 24 hours, in order to prevent risk of osmotic demyelination syndrome. Patient's mentation remains at baseline. Will get PT evaluation prior to discharge. We will continue to correct sodium slowly and monitor with every 4 hourly checks. Patient examined and case discussed with the team including attending physician. Note reviewed, I agree with the care plan as documented. - Dave Lambert MD, PGY 2 Attending Provider Attestation/Addendum I reviewed labs, imaging, EKG, home medications and prior available records. Face to face evaluation was performed by me. I have personally examined the patient and discussed assessment and plan with the IM team. I reviewed the resident note and agree with the plan with exceptions as below. Please see my separate addendum for the same date of service
--- NOTE | 2024-05-12 14:32 | PD.ADDPROG ---
Addendum Progress Note Addendum Date of report being addended: 05/12/24 Narrative: Attending's attestation: I reviewed labs, imaging, EKG, home medications and prior available records. Face to face evaluation was performed by me. I have personally examined the patient and discussed assessment and plan with the IM team. I reviewed the resident note and agree with the plan with exceptions as below. Hyponatremia SWATI Hypokalemia Acute UTI Abnormal thyroid function test Debility Started IV fluids Stop hydrochlorothiazide Monitor sodium level every 46 hours Avoid rapid correction of sodium Monitor kidney function. Avoid nephrotoxins. Renally dosed medications Ordered free T4 Started IV Rocephin for the UTI. Follow-up urine culture
[2024-05-12 15:39] LABS: Anion Gap 10 (7-16); BUN/Creatinine Ratio 21 Ratio (12-20); Blood Urea Nitrogen 17 mg/dL (9-23); Calcium 8.4 mg/dL (8.3-10.6); Calcium (Corrected) 8.4 mg/dL (8.5-10.1); Carbon Dioxide 18.3 mMol/L (20.0-31.0); Chloride 92 mMol/L (98-107); Creatinine (Component) 0.8 mg/dL (0.6-1.3); Estimated Creatinine Clearance 57.7 mL/min (>60); Glucose 99 mg/dL (74-106); Osmolality,Calculated 243 (275-295); Phosphorous 2.8 mg/dL (2.4-5.1); Sodium 120 mMol/L (136-145); eGFR > 60 See Note
[2024-05-12 18:16] LABS: Albumin, Serum 4.1 gm/dL (3.4-4.8); Anion Gap 7 (7-16); BUN/Creatinine Ratio 27 Ratio (12-20); Blood Urea Nitrogen 19 mg/dL (9-23); Calcium 8.3 mg/dL (8.3-10.6); Calcium (Corrected) 8.3 mg/dL (8.5-10.1); Carbon Dioxide 21.1 mMol/L (20.0-31.0); Chloride 94 mMol/L (98-107); Creatinine (Component) 0.7 mg/dL (0.6-1.3); Estimated Creatinine Clearance 65.9 mL/min (>60); Glucose 92 mg/dL (74-106); Osmolality,Calculated 248 (275-295); Phosphorous 2.5 mg/dL (2.4-5.1); Potassium 3.8 mMol/L (3.4-5.1); Sodium 122 mMol/L (136-145); eGFR > 60 See Note
[2024-05-12] MEDS: cefTRIAXone/D5w 1gm IV premix 50 ML IV (20:07)
[2024-05-12] MEDS: SODIUM CHLORIDE 0.9% 1000 ML 1,000 ML 50 ML IV (20:34)
[2024-05-12 22:12] LABS: Prothrombin Time 11.4 Seconds (9.0-12.2)
[2024-05-12 22:18] LABS: Anion Gap 7 (7-16); BUN/Creatinine Ratio 24 Ratio (12-20); Blood Urea Nitrogen 17 mg/dL (9-23); Calcium 8.6 mg/dL (8.3-10.6); Calcium (Corrected) 8.6 mg/dL (8.5-10.1); Chloride 94 mMol/L (98-107); Creatinine (Component) 0.7 mg/dL (0.6-1.3); Estimated Creatinine Clearance 65.9 mL/min (>60); Glucose 101 mg/dL (74-106); Osmolality,Calculated 249 (275-295); Phosphorous 2.2 mg/dL (2.4-5.1); Potassium 4.1 mMol/L (3.4-5.1); Sodium 123 mMol/L (136-145); eGFR > 60 See Note
[2024-05-12 22:31] LABS: Alcohol, Urine Negative (Negative)
[2024-05-13] VITALS (10 sets, daily range): BP systolic 104–129; BP diastolic 54–88; PULSE 68–92; RESP 17–95; TEMP 36.1–36.7; O2SAT 92–97; BMI 22.8
[2024-05-13 02:05] LABS: Albumin, Serum 3.9 gm/dL (3.4-4.8); Anion Gap 6 (7-16); BUN/Creatinine Ratio 23 Ratio (12-20); Blood Urea Nitrogen 14 mg/dL (9-23); Calcium (Corrected) 8.1 mg/dL (8.5-10.1); Carbon Dioxide 19.9 mMol/L (20.0-31.0); Chloride 95 mMol/L (98-107); Creatinine (Component) 0.6 mg/dL (0.6-1.3); Estimated Creatinine Clearance 76.9 mL/min (>60); Glucose 108 mg/dL (74-106); Osmolality,Calculated 245 (275-295); Potassium 3.5 mMol/L (3.4-5.1); Sodium 121 mMol/L (136-145); eGFR > 60 See Note
[2024-05-13] MEDS: LEVOTHYROXINE SODIUM 25 MCG TABLET 75 MCG PO (05:35)
[2024-05-13 05:54] LABS: Basophils % (Auto) 1 % (0-2.5); Eosinophils # (Auto) 0.1 Thou/mm3 (0.0-0.5); Eosinophils % (Auto) 2 % (0-10); Hematocrit 35.2 % (36.0-46.0); Hemoglobin 12.7 g/dL (12.0-16.0); Immature Granulocytes % (Auto) 0 % (0-0); Immature Granulocytes Auto 0.02 Thou/mm3 (0.00-0.00); Lymphocytes % (Auto) 16 % (10-50); Mean Corpuscular HGB Conc 36.1 g/dl (31.0-37.0); Mean Corpuscular Hemoglobin 32.8 pg (25.0-35.0); Mean Corpuscular Volume 91 fL (80-100); Monocytes # (Auto) 1.1 Thou/mm3 (0.0-0.8); Monocytes % (Auto) 18 % (0-12); Neutrophils # (Auto) 3.9 Thou/mm3 (1.8-7.7); Neutrophils % (Auto) 63 % (37-80); Nucleated Red Blood Cell % 0 /100 WBC (0); Platelet Count 137 Thou/mm3 (140-440); RDW Standard Deviation 41.4 fL (36.4-46.3); Red Blood Count 3.87 Miln/mm3 (4.00-5.20); White Blood Count 6.1 Thou/mm3 (3.6-11.0)
[2024-05-13 06:29] LABS: Sodium 123 mMol/L (136-145)
[2024-05-13] MEDS: POTASSIUM CHLORIDE 20 mEq TABCR 40 MEQ PO (08:48)
[2024-05-13] MEDS: SENNA TABLET 1 TAB PO (08:48)
[2024-05-13] MEDS: HEPARIN SOD INJ 5000 UNIT/ML VIAL SC ×2 (08:49→20:13)
[2024-05-13] MEDS: NICOTINE PATCH 21 MG/24 HR PATCH.TD24 TOP (08:49)
[2024-05-13] MEDS: SODIUM CHLORIDE 0.9% 1000 ML 1,000 ML 70 ML IV (09:18)
--- NOTE | 2024-05-13 09:53 | ESPR_ITS ---
<Statement entered by Los Dee DO - 05/13/24 14:43> Senior attestation: Patient was examined and case was reviewed with team including attending physician. Note reviewed, I agree with most of its contents and agree with the patient's care. Sodium uptrended to 123 today, will continue on IV NS fluids at 70 cc with repeat sodium checks. Los Dee DO PGY-3 Documentation for date of: 05/13/24 Subjective Subjective Interval history: Patient seen at bedside this morning. No overnight events. Patient sodium up trended to 123 today and has been stable. Patient did develop some acidosis likely in the setting of aggressive IV hydration with normal saline, Will continue to monitor. Patient denies any symptoms at this time and denies being anxious at this time. Sodium goal today would be 127 and we will continue normal saline for now. Potassium was repleted and Neutra-Phos was given as well. Will continue Rocephin for patient's UTI. Exam Vital Signs Temp Pulse Resp BP Pulse Ox O2 Del Method 97.3 F 83 20 118/88 H 93 L Room Air 05/13/24 08:00 05/13/24 08:35 05/13/24 08:35 05/13/24 08:00 05/13/24 08:00 05/13/24 08:00 Narrative Exam General: A/O x3, no acute distress, anxious appearing Eyes: PERRL, EOMI. Anicteric, vision grossly intact. Ears: No ear pain, no ear discharge, Hearing grossly intact. Nose: No nasal discharge. Mouth/Throat: Dry mucous membranes, missing dentation, no redness, no lesions. Neck: Neck supple, non-tender, no cervical lymphadenopathy. Lungs: Clear FRANCIE to auscultation and percussion, No accessory muscle use. Cardio: Normal S1/S2, regular rhythm, no murmurs, no JVD Abdomen: Soft, non-tender, no palpable masses, peristalsis present, no guarding or rebound. Extremities: Symmetrical, no significant deformities, no peripheral edema , non-tender, peripheral pulses presents. Skin: No rashes, no lesions, warm to touch. Neuro: No focal neurological deficits. motor and sensory intact. Psych: anxious Objective Labs 05/13/24 05:00 05/13/24 12:38 Labs: Laboratory Results - last 24 hr 05/12/24 05/12/24 05/12/24 05:30 09:53 13:58 WBC RBC Hgb Hct MCV MCH MCHC RDW Std Deviation Plt Count Neut % (Auto) Lymph % (Auto) [place] % (Auto) Eos % (Auto) Baso % (Auto) Neut # (Auto) Lymph # (Auto) [place] # (Auto) Eos # (Auto) Baso # (Auto) Immature Gran # (Auto) Absolute Nucleated RBC Immature Gran % Nucleated RBC % PT INR Sodium 123 L 120 L Potassium 3.3 L 4.0 D Chloride 94 L 92 L Carbon Dioxide 18.4 L 18.3 L Anion Gap 11 10 BUN 23 17 Creatinine 0.9 0.8 Estim Creat Clear Calc 51.3 L 57.7 L eGFR > 60 > 60 BUN/Creatinine Ratio 26 H 21 H Glucose 98 99 Calculated Osmolality 251 L 243 L Calcium 8.4 8.4 Corrected Calcium 8.4 L 8.4 L Phosphorus 3.0 2.8 Magnesium Albumin 4.0 4.0 Free T4 1.04 Urine Alcohol 05/12/24 05/12/24 05/12/24 17:32 21:37 22:00 WBC RBC Hgb Hct MCV MCH MCHC RDW Std Deviation Plt Count Neut % (Auto) Lymph % (Auto) [place] % (Auto) Eos % (Auto) Baso % (Auto) Neut # (Auto) Lymph # (Auto) [place] # (Auto) Eos # (Auto) Baso # (Auto) Immature Gran # (Auto) Absolute Nucleated RBC Immature Gran % Nucleated RBC % PT 11.4 INR 1.0 Sodium 122 L 123 L Potassium 3.8 4.1 Chloride 94 L 94 L Carbon Dioxide 21.1 22.0 Anion Gap 7 7 BUN 19 17 Creatinine 0.7 0.7 Estim Creat Clear Calc 65.9 65.9 eGFR > 60 > 60 BUN/Creatinine Ratio 27 H 24 H Glucose 92 101 Calculated Osmolality 248 L 249 L Calcium 8.3 8.6 Corrected Calcium 8.3 L 8.6 Phosphorus 2.5 2.2 L Magnesium Albumin 4.1 4.0 Free T4 Urine Alcohol Negative 05/13/24 05/13/24 01:27 05:00 WBC 6.1 RBC 3.87 L Hgb 12.7 Hct 35.2 L MCV 91 MCH 32.8 MCHC 36.1 RDW Std Deviation 41.4 Plt Count 137 L Neut % (Auto) 63 Lymph % (Auto) 16 [place] % (Auto) 18 H Eos % (Auto) 2 Baso % (Auto) 1 Neut # (Auto) 3.9 Lymph # (Auto) 1.0 [place] # (Auto) 1.1 H Eos # (Auto) 0.1 Baso # (Auto) 0.0 Immature Gran # (Auto) 0.02 H Absolute Nucleated RBC 0.00 Immature Gran % 0 Nucleated RBC % 0 PT INR Sodium 121 L 123 L Potassium 3.5 D Chloride 95 L Carbon Dioxide 19.9 L Anion Gap 6 L BUN 14 Creatinine 0.6 Estim Creat Clear Calc 76.9 eGFR > 60 BUN/Creatinine Ratio 23 H Glucose 108 H Calculated Osmolality 245 L Calcium 8.0 L Corrected Calcium 8.1 L Phosphorus 2.0 L Magnesium 2.0 Albumin 3.9 Free T4 Urine Alcohol Quality Measures Quality Measures none Assessment & Plan Assessment Current Active Medications: Generic Name Dose Route Start Last Admin Trade Name Freq PRN Reason Stop Dose Admin Acetaminophen 650 mg 05/11/24 22:21 Acetaminophen 325 Mg Tablet PO 06/10/24 22:20 Q6H PRN Pain 1-3 or Fever >100.3 Heparin Sodium (Porcine) 5,000 unit 05/12/24 09:00 05/13/24 08:49 Heparin Sod Inj 5000 Unit/Ml Vial SC 05/26/24 08:59 5,000 unit Q12HR BRIE Administration Ceftriaxone Sodium/Dextrose 50 mls @ 100 mls/hr 05/12/24 21:00 05/12/24 20:07 Rocephin/D5w 1gm Iv Premix IV 05/19/24 20:59 100 mls/hr HS BRIE Administration Sodium Chloride 1,000 mls @ 70 mls/hr 05/13/24 09:01 05/13/24 09:18 Ns IV 05/13/24 23:18 70 mls/hr .[id number] BRIE Administration Levothyroxine Sodium 75 mcg 05/13/24 06:00 05/13/24 05:35 Levothyroxine Sodium 25 Mcg Tablet PO 06/12/24 05:59 75 mcg ACBR BRIE Administration Nicotine 21 mg 05/12/24 12:15 05/13/24 08:49 Nicotine Patch 21 Mg/24 Hr Patch.Td24 TOP 06/11/24 12:14 21 mg QDAY BRIE Administration Ondansetron HCl 4 mg 05/11/24 22:21 Ondansetron Inj 2 Mg/Ml Inj 2 Ml IV 06/10/24 22:20 Q6H PRN NAUSEA OR VOMITING Protocol Sennosides 1 tab 05/12/24 09:00 05/13/24 08:48 Senna Tablet PO 06/11/24 08:59 1 tab QDAY BRIE Administration Protocol Zolpidem Tartrate 5 mg 05/12/24 00:47 Zolpidem 5 Mg Tablet PO 06/11/24 00:46 HS PRN Insomnia Plan 63-year-old female with past medical history of hypertension hypothyroidism s/p thyroidectomy was admitted to hospital on 05/11/2024 due to hypoosmolar hyponatremia associated with generalized weakness. #Hypoosmolar hyponatremia #Generalized weakness #Dilution acidosis ?Patient came in with generalized weakness and a sodium of 120. ? Patient was on the hydrochlorothiazide at home ? DDx medication induced versus SIADH versus dehydration versus beer potomnia versus polydipsia ?Urine electrolytes showed random sodium less than 10, random potassium 77, and random chloride less than 20 ?bicarb 19.9 today likely in the setting of aggressiveIV hydration with normal saline Plan: ? Holding hydrochlorothiazide ?Continue normal saline at 70 cc/h ? Renal function panel every 4 ? Sodium goal correction of 4-6 in the first 24 hours with goal of 127 today ? Physical therapy ordered ? Will continue to monitor #Electrolyte imbalance #Hypophosphatemia #Hypochloremia ?Chloride 95 and phosphorus 2 Plan ? Neutra-Phos x 1 ? Will replete as necessary #UTI ? Patient's UA was positive for bacteria ? There was no leukocytosis or signs of sepsis. Plan: ? Continue Rocephin 1 g daily [05/12/2024?] ?Pending urine culture #Hypertension ?Patient's blood pressure has been on the lower end in the 100s over 60s during her hospital stay Plan: Will hold off on any antihypertensive medication for now as patient blood pressure has been well-controlled #Hypothyroidism s/p thyroidectomy ? TSH 0.52 and free T4 1.04 On this admission Plan: ?Will continue patient's levothyroxine 75mcg qday #Alcohol use disorder ? Patient stated that she drinks daily a couple beers ? Patient stated that she had less than 1 can of beer on the day prior to admission. ? Urine alcohol levels negative Plan: ? Will continue to monitor counseled on importance of quitting alcohol #Active Smoker -States smokes 1ppd -Ordered nicotine patch 21 -counseled on importance to quit smoking Disposition: Patient seen in med surg, monitoring Na+ q4h, NS 1L at 100cc/hr. Diet: cardiac GI prophylaxis: not indicated DVT prophylaxis: Heparin sc Code: Full Case disclosed with Attending Dr. Cárdenas and My senior Dr. Dee PGY3. Durga Calix PGY1 Attending Provider Attestation/Addendum I, Radha Cárdenas, DO, attest that I was physically present for the gaspar portions of the service and evaluated the patient with the resident and I reviewed and discussed the case with the resident and agree with the resident's findings and plans of care as documented above Patient seen and evaluated this AM. She is tearful and concerned about her generalized weakness. Sodium continues to be low at 123. IV fluids rate increased. If sodium levels continue to be low, will start sodium chloride tabs, suspect SIADH. Losartan and HCTZ held. Will continue to trend sodium
[2024-05-13 10:37] LABS: Sodium 123 mMol/L (136-145)
[2024-05-13] MEDS: NAPH,KPH MBDB 1 PACKET (1.5 GM) PO (11:03)
[2024-05-13 11:54] LABS: Band Neutrophils (Manual) 12 % (0-6); Lymphocytes (Manual) 30 % (20-44); Monocytes (Manual) 10 % (2-9); Neutrophils (Manual) 48 % (50-70)
[2024-05-13 13:32] LABS: Sodium 123 mMol/L (136-145)
--- NOTE | 2024-05-13 14:03 | CHAP ---
09:30 AM Visited by spiritual care volunteer Provided prayer for Patient.
[2024-05-13 17:19] LABS: Sodium 123 mMol/L (136-145)
[2024-05-13] MEDS: SODIUM CHLORIDE 1 GM TABLET PO (20:13)
[2024-05-14] VITALS: BP 103/58; PULSE 68; PULSE 71; RESP 18; TEMP 36.5; O2SAT 96
[2024-05-14] LABS: Sodium 129 mMol/L (136-145)
[2024-05-14 04:00] VITALS: BP 111/59; PULSE 76; PULSE 79; RESP 20; TEMP 36.2; O2SAT 96
[2024-05-14] MEDS: LEVOTHYROXINE SODIUM 25 MCG TABLET 75 MCG PO (05:21)
[2024-05-14] MEDS: ACETAMINOPHEN 325 MG TABLET 650 MG PO ×2 (05:25→12:38)
[2024-05-14 05:59] LABS: Basophils % (Auto) 1 % (0-2.5); Eosinophils # (Auto) 0.3 Thou/mm3 (0.0-0.5); Eosinophils % (Auto) 5 % (0-10); Hematocrit 34.8 % (36.0-46.0); Hemoglobin 12.4 g/dL (12.0-16.0); Immature Granulocytes % (Auto) 1 % (0-0); Immature Granulocytes Auto 0.04 Thou/mm3 (0.00-0.00); Lymphocytes # (Auto) 1.1 Thou/mm3 (1.0-4.8); Lymphocytes % (Auto) 18 % (10-50); Mean Corpuscular HGB Conc 35.6 g/dl (31.0-37.0); Mean Corpuscular Hemoglobin 32.5 pg (25.0-35.0); Mean Corpuscular Volume 91 fL (80-100); Monocytes % (Auto) 17 % (0-12); Neutrophils # (Auto) 3.3 Thou/mm3 (1.8-7.7); Neutrophils % (Auto) 59 % (37-80); Nucleated Red Blood Cell % 0 /100 WBC (0); Platelet Count 156 Thou/mm3 (140-440); RDW Standard Deviation 41.7 fL (36.4-46.3); Red Blood Count 3.81 Miln/mm3 (4.00-5.20); White Blood Count 5.7 Thou/mm3 (3.6-11.0)
[2024-05-14 06:00] VITALS: BMI 23.1
[2024-05-14 06:31] LABS: Albumin, Serum 3.6 gm/dL (3.4-4.8); Anion Gap 7 (7-16); BUN/Creatinine Ratio 20 Ratio (12-20); Blood Urea Nitrogen 10 mg/dL (9-23); Calcium 7.8 mg/dL (8.3-10.6); Calcium (Corrected) 8.1 mg/dL (8.5-10.1); Carbon Dioxide 21.6 mMol/L (20.0-31.0); Chloride 99 mMol/L (98-107); Creatinine (Component) 0.5 mg/dL (0.6-1.3); Estimated Creatinine Clearance 92.3 mL/min (>60); Glucose 93 mg/dL (74-106); Osmolality,Calculated 256 (275-295); Phosphorous 2.5 mg/dL (2.4-5.1); Potassium 3.8 mMol/L (3.4-5.1); Sodium 128 mMol/L (136-145); eGFR > 60 See Note
[2024-05-14 07:48] VITALS: BP 111/67; PULSE 96; RESP 17; TEMP 36.1; O2SAT 93
[2024-05-14 07:55] VITALS: PULSE 73
[2024-05-14] MEDS: NICOTINE PATCH 21 MG/24 HR PATCH.TD24 TOP (08:49)
[2024-05-14] MEDS: SENNA TABLET 1 TAB PO (08:49)
[2024-05-14] MEDS: HEPARIN SOD INJ 5000 UNIT/ML VIAL SC (08:49)
[2024-05-14] MEDS: CELECOXIB 100 MG CAPSULE PO (09:38)
--- NOTE | 2024-05-14 10:12 | ESDS_ITS ---
<Statement entered by Radha Cárdenas DO - 05/14/24 15:58> I, Radha Cárdenas DO, attest that I was physically present for the gaspar portions of the service and evaluated the patient with the resident and I reviewed and discussed the case with the resident and agree with the resident's findings and plans of care as documented above <Statement entered by Los Dee DO - 05/14/24 15:30> Senior attestation: Patient was examined and case was reviewed with team including attending physician. Note reviewed, I agree with most of its contents and agree with the patient's care. Los Dee DO PGY-3 Planned Discharge Date 05/14/24 DS: Providers Provider Date of admission: 05/11/24 22:21 Primary care physician: oGpi Garcia DO Admitting Provider: Spring Trevino MD Attending Provider on Admission: Spring Trevino MD Consults: 05/11/24 22:58 Referral Physical Therapy Routine Comment: Physician Instructions: Attending Provider on DC: Radha Cárdenas DO Discharging Provider: Radha Cárdenas DO DS: Diagnosis Problem List Completed Was Problem List Reviewed/Reconciled?: Yes Hospital Course Hospital Course Hospital course: 63-year-old female with past medical history of hypertension hypothyroidism s/p thyroidectomy was admitted to hospital on 05/11/2024 due to hypoosmolar hyponatremia associated with generalized weakness. In the ED patient came in with complaints of weakness and unsteady gait since 4 days prior to admission. Initially patient came in tachycardic) blood pressure on the lower end of the 100s over 60s. Initial labs were relevant for hyponatremia (sodium 120), hypochloremia (chloride 88), elevated TSH but normal free T4, and UA was positive for bacteria. Initial imaging included chest x-ray which does not show any pneumonia or pulmonary edema and head CT which was unremarkable. EKG showed sinus tachycardia and did not show any acute ST changes. Patient was placed on normal saline as she looked to be dehydrated which could have been the cause for hyponatremia along with use of hydrochlorothiazide and losartan which could have induced hyponatremia. Patient's sodium on the first day of admission improved from 120-123 the first 24 hours and at the time of discharge patient sodium was 128. Physical therapy also recommended the patient to have home health for physical therapy as she would benefit from physical therapy to help with the weakness. On the night of the hospital discharge patient was noticed to have possibly passed some kidney stones and was given pain medication. She also received 2 doses of Rocephin for her possible UTI. At the time of discharge patient was stable enough to be discharged home with home health. Discharge plan: We have started you on sodium tablets once every day. We have stopped your hydrochlorothiazide and losartan given that it can decrease your serum sodium. We have stopped all your blood pressure medication at this time as her blood pressure has been well-controlled during the hospital stay. Primary care physician to reevaluate need for antihypertensive medication. Please follow-up with primary care physician in 1 week after discharge. We have ordered home health for continuation of physical therapy. Please return to the ED if symptoms persist or worsen. Problem list: #Hypoosmolar hyponatremia #Generalized weakness #Dilution acidosis #Possible kidney stones #Electrolyte imbalance #Hypophosphatemia #Hypochloremia #UTI #Hypertension #Hypothyroidism s/p thyroidectomy #Alcohol use disorder #Active Smoker Case disclosed with Attending Dr. Cárdenas and My senior Dr. Dee PGY3. Durga Calix PGY1 Time spent discussing smoking cessation with patient: 3 to 10 minutes Status at Discharge Overall status at discharge: patient is progressing back to baseline Time Spent with Patient Time attestation: Total time spent providing and/or coordinating discharge services:>35min Exam Vital Signs Temp Pulse Resp BP Pulse Ox O2 Del Method O2 Flow Rate 97.0 F 73 17 111/67 93 L Nasal Cannula 2 05/14/24 07:48 05/14/24 07:55 05/14/24 07:48 05/14/24 07:48 05/14/24 07:48 05/14/24 07:48 05/14/24 07:48 Narrative Exam General: A/O x3, no acute distress Eyes: PERRL, EOMI. Anicteric, vision grossly intact. Ears: No ear pain, no ear discharge, Hearing grossly intact. Nose: No nasal discharge. Mouth/Throat: Dry mucous membranes, missing dentation, no redness, no lesions. Neck: Neck supple, non-tender, no cervical lymphadenopathy. Lungs: Clear FRANCIE to auscultation and percussion, No accessory muscle use. Cardio: Normal S1/S2, regular rhythm, no murmurs, no JVD Abdomen: Soft, non-tender, no palpable masses, peristalsis present, no guarding or rebound. Extremities: Symmetrical, no significant deformities, no peripheral edema , non -tender, peripheral pulses presents. Skin: No rashes, no lesions, warm to touch. Neuro: No focal neurological deficits. motor and sensory intact. Psych: Cooperative Discharge Plan Plan Patient Disposition: Home w/HOME HEALTH Patient condition on transfer: Stable Care Plan Goals: We have started you on sodium tablets once every day. We have stopped your hydrochlorothiazide and losartan given that it can decrease your serum sodium. Can take Hiprex for preventing urinary tract infections. We have stopped all your blood pressure medication at this time as her blood pressure has been well-controlled during the hospital stay. Primary care physician to reevaluate need for antihypertensive medication. Please follow-up with primary care physician in 1 week after discharge. We have ordered home health for continuation of physical therapy. Please return to the ED if symptoms persist or worsen. Prescriptions/Referrals Prescriptions/Med Rec: New celecoxib 100 mg capsule 100 mg PO BID PRN (Reason: Pain) 10 Days Qty: 20 0RF methenamine hippurate 1 gram tablet 1 g PO Q12H 5 Days Qty: 10 0RF sodium chloride 1,000 mg tablet,soluble 1,000 mg PO QDAY 30 Days Qty: 30 0RF Continued levothyroxine 75 mcg tablet 75 mcg PO QDAY Patient Comments: TAKE 1 TABLET BY MOUTH EVERY DAY metoprolol succinate 25 mg tablet extended release 24 hr 25 mg PO QDAY Patient Comments: TAKE 1 TABLET BY MOUTH EVERY DAY zolpidem 10 mg tablet 5 mg PO HS PRN (Reason: Insomnia) Patient Comments: TAKE 1 TABLET BY MOUTH EVERY DAY NIGHT NEEDED FOR INSOMNIA Held losartan-hydrochlorothiazide 50-12.5 mg tablet 1 tab PO QDAY Hold Instructions: Resume on 05/22/24. HOLD until follow up with PCP Patient Comments: TAKE 1 TABLET BY MOUTH EVERY DAY Referrals: Gopi Garcia DO [Primary Care Provider] - Patient/Caregiver Discharge Instructions Meds to Beds: Yes Discharge Activity: as per physical therapy and resume usual activities Education Materials: Urinary Tract Infections in Women, Hyponatremia Dc Print Language: [place] Citizen Stand Alone Forms: Pita Award Info., Patient Portal Info Letter Discharge Order Discharge Orders: Discharge (Routine); Ordered 05/14/24 Ordered By: Los Dee Quality Discharge Quality Measures VTE prophylaxis
[2024-05-14 12:00] VITALS: BP 112/62; PULSE 61; PULSE 63; RESP 19; TEMP 36.1; O2SAT 97
--- NOTE | 2024-05-14 12:29 | XR_ITS ---
Examination: Urinary bladder sonography Technique: Multiple high resolution grayscale sonographic images urinary bladder Exam date and time: May 14, 2024 12:57 PM Indications: Bladder pain this week Findings: No bladder mass or bladder calculi Bladder prevoid volume 369 cc unable to void Impression: No bladder mass or bladder calculi
[2024-05-14] MEDS: CIPROFLOXACIN HCL 250 MG TABLET 500 MG PO (12:30)
--- NOTE | 2024-05-14 15:46 | PC.SS ---
Addendum entered by Jordan Blanchard 05/14/24 16:51: SS sent DME for walker referral via [facility] Original Note: SS spoke with pt about HH; no preference on provider SS met with pt at bedside provided IMM infomation; Pt A/O times 4
[2024-05-14 16:00] VITALS: BP 117/63; PULSE 60; PULSE 65; RESP 19; TEMP 36.1; O2SAT 97
--- NOTE | 2024-05-14 16:12 | PC.SS ---
The diagnosis creates mobility limitation that significantly impairs ability to participate in the patients activities of daily living either in their entirety, or in a reasonable time frame. Also the patient is able to safely use the walker and the patient?s mobility is sufficiently resolved with the use of the walker and cane has been ruled out.
[2024-05-16 06:15] LABS: Osmolality, Urine* 413 mOsm/kg (50-1200)
--- NOTE | 2024-05-16 15:20 | PC.CM ---
Addendum entered by Artemio Salinas RN 05/18/24 10:42: Start of care 05/18/24 with [facility]. Addendum entered by Magdalena Gomez RN 05/16/24 17:57: [facility] will open patient on 05/18. Original Note: Patient has been accepted by [facility]. We are pending start of care date.
== END 2024-05-14 16:50 | disposition home health service (06) | DRG 641 ==
LOC: SERX 21:50 → SERHOLD 22:50 → S3NX 23:49
PROVIDERS: Nurse Practitioner Family; Registered Nurse General Practice; Student in an Organized Health Care Education/Training Program; Admitting Provider Student in an Organized Health Care Education/Training Program; Emergency Provider Emergency Medicine; PCP Family Medicine; Visit Provider Student in an Organized Health Care Education/Training Program
DX: E87.1 Hypo-osmolality and hyponatremia (principal); N39.0 Urinary tract infection, site not specified; I10 Essential (primary) hypertension; E89.0 Postprocedural hypothyroidism; E87.8 Other disorders of electrolyte and fluid balance, not elsewhere classified; N20.0 Calculus of kidney; T50.2X5A Adverse effect of carbonic-anhydrase inhibitors, benzothiadiazides and other diuretics, initial encounter; T46.5X5A Adverse effect of other antihypertensive drugs, initial encounter; F10.90 Alcohol use, unspecified, uncomplicated; E86.0 Dehydration; E83.39 Other disorders of phosphorus metabolism; E87.20 Acidosis, unspecified; E87.6 Hypokalemia; F17.210 Nicotine dependence, cigarettes, uncomplicated; Z79.890 Hormone replacement therapy; Z79.899 Other long term (current) drug therapy
CPT/HCPCS: 36415; 70450; 71046; 76857; 80048; 80053; 80061; 80069; 80307; 80320; 81001; 82436; 83735; 83880; 83935; 84100; 84133; 84295; 84300; 84439; 84443; 84484; 85025; 85610; 87086; 93005; 93225; 96365; 97162; 99285; J0696; J1643; J3475; J7030; A9270; G0480; J1644

== ENCOUNTER 2024-08-25 16:25 | Emergency (ER) | payer MEDICARE, SELFPAY ==
[2024-08-25 16:26] VITALS: BMI 22.1
--- NOTE | 2024-08-25 16:51 | XR_ITS ---
Examination: Duplex scan of the lower extremity, unilateral left Date and time of exam: August 25, 2024 1730 hrs. Indications: Left leg swelling and pain beginning 2 weeks ago Technique: Duplex scan of the extremity veins using B-mode/grayscale imaging and Doppler spectral analysis and color flow Attention is directed to internal echogenicity, compression and augmentation involving these veins, color flow assessment, spectral analysis Findings: Major deep venous structures in the extremity demonstrate normal course and caliber. There is no evidence of deep vein thrombosis. Normal color flow and spectral analysis Impression: Negative for DVT..
--- NOTE | 2024-08-25 16:54 | PD.EDRME ---
Rapid Medical Screening Exam RME Arrival date/time: 08/25/24 16:25 64-year-old female with a history of hypothyroidism, hypertension, presents to the emergency room with a chief complaint of a cyst to the back of the patient's knee. Patient states she was sent to the emergency room by her primary care provider to rule out a DVT. I have greeted and performed a focused initial assessment of this patient. A comprehensive ED assessment and evaluation of the patient, analysis of all test results, and completion of the medical decision making process will be conducted by additional ED providers. Chief Complaint: Extremity Injury, Lower Time Seen by Provider: 08/25/24 16:36 Vital signs reviewed by provider: Yes
[2024-08-25 16:57] VITALS: BP 136/72; PULSE 76; RESP 16; TEMP 37; O2SAT 95
[2024-08-25 17:14] LABS: Basophils # (Auto) 0.1 Thou/mm3 (0.0-0.2); Basophils % (Auto) 1 % (0-2.5); Eosinophils # (Auto) 0.3 Thou/mm3 (0.0-0.5); Eosinophils % (Auto) 4 % (0-10); Hematocrit 38.2 % (36.0-46.0); Hemoglobin 13.6 g/dL (12.0-16.0); Immature Granulocytes % (Auto) 0 % (0-0); Immature Granulocytes Auto 0.01 Thou/mm3 (0.00-0.00); Lymphocytes # (Auto) 3.5 Thou/mm3 (1.0-4.8); Lymphocytes % (Auto) 42 % (10-50); Mean Corpuscular HGB Conc 35.6 g/dl (31.0-37.0); Mean Corpuscular Hemoglobin 33.4 pg (25.0-35.0); Mean Corpuscular Volume 94 fL (80-100); Monocytes # (Auto) 1.3 Thou/mm3 (0.0-0.8); Monocytes % (Auto) 15 % (0-12); Neutrophils # (Auto) 3.1 Thou/mm3 (1.8-7.7); Neutrophils % (Auto) 38 % (37-80); Nucleated Red Blood Cell % 0 /100 WBC (0); Platelet Count 326 Thou/mm3 (140-440); RDW Standard Deviation 43.4 fL (36.4-46.3); Red Blood Count 4.07 Miln/mm3 (4.00-5.20); White Blood Count 8.3 Thou/mm3 (3.6-11.0)
[2024-08-25 17:32] LABS: Alanine Aminotransferase 14 U/L (10-49); Albumin, Serum 4.4 gm/dL (3.4-4.8); Albumin/Globulin Ratio 1.5 (1.2-2.2); Alkaline Phosphatase 77 U/L (46-116); Anion Gap 7 (7-16); Aspartate Amino Transferase 32 U/L (0-34); BUN/Creatinine Ratio 8 Ratio (12-20); Bilirubin,Total 0.2 mg/dL (0.3-1.2); Blood Urea Nitrogen < 5 mg/dL (9-23); Calcium 8.9 mg/dL (8.3-10.6); Calcium (Corrected) 8.9 mg/dL (8.5-10.1); Carbon Dioxide 28.7 mMol/L (20.0-31.0); Chloride 93 mMol/L (98-107); Creatinine (Component) 0.6 mg/dL (0.6-1.3); Estimated Creatinine Clearance 75.9 mL/min (>60); Glucose 99 mg/dL (74-106); Osmolality,Calculated 256 (275-295); Potassium 3.8 mMol/L (3.4-5.1); Sodium 129 mMol/L (136-145); Total Protein 7.4 gm/dL (5.7-8.2); eGFR > 60 See Note
[2024-08-25 18:12] LABS: Partial Thromboplastin Time 32.9 Seconds (22.0-36.0); Prothrombin Time 11.4 Seconds (9.0-12.2)
[2024-08-25 20:53] VITALS: BP 171/85; PULSE 93; RESP 18; TEMP 36.6; O2SAT 96
--- NOTE | 2024-08-25 21:05 | EDNOTE_ITS ---
Lower Extremity Injury RME/HPI General Chief Complaint: Extremity Injury, Lower Stated Complaint: SENT BY PCP R/O DVT LLE Time Seen by Provider: 08/25/24 16:36 Arrival date/time: 08/25/24 16:25 Limitations: no limitations RME / HPI RME / HPI Narrative: 08/25/24 16:25 64-year-old female with a history of hypothyroidism, hypertension, presents to the emergency room with a chief complaint of a cyst to the back of the patient's knee. Patient states she was sent to the emergency room by her primary care provider to rule out a DVT. I have greeted and performed a focused initial assessment of this patient. A comprehensive ED assessment and evaluation of the patient, analysis of all test results, and completion of the medical decision making process will be conducted by additional ED providers. 210408/25/24 64 yo F sent by primary care to rule out DVT. Diagnosed with Ahumada's cyst and posterior left knee. Reports intermittent shooting pain down posterior left leg. Denies trauma, bladder and bowel incontinence, back pain, neck pain, and fever. Related Data Home Medications ?Medication ?Instructions ?Recorded ?Confirmed levothyroxine 75 mcg tablet 75 mcg PO QDAY 05/12/24 losartan 50 mg-hydrochlorothiazide 1 tab PO QDAY 05/1205/12/24 12.5 mg tablet Held on 05/14/24. Instructions: Resume on 05/22/24. HOLD until follow up with PCP metoprolol succinate 25 mg 25 mg PO QDAY 05/12/2404/21 tablet,extended release 24 hr zolpidem 10 mg tablet 5 mg PO HS PRN Insomnia 04/2105/12/24 Previous Rx's ?Medication ?Instructions ?Recorded acetaminophen 325 mg tablet 325 mg PO QID PRN pain #3 0 tabs 08/25/24 (Tylenol) gabapentin 100 mg capsule 100 mg PO QDAY nerve pain # 30 caps 08/25/24 ibuprofen 800 mg tablet 800 mg PO Q8H PRN pain #14 t abs 08/25/24 Allergies Allergy/AdvReac Type Severity Reaction Status Date / Time No Known Allergies Allergy Verified 08/25/24 16:26 Review of Systems Constitutional Constitutional: Denies body ache(s), Denies chills, Denies fever(s), Denies frequent falls and Denies headache(s) Eyes Eyes: Denies blurry vision and Denies change in vision ENT Ears, Nose, Mouth, and Throat: Denies disequilibrium, Denies dizziness, Denies headache(s) and Denies neck pain Cardiovascular Cardiovascular: Denies chest pain, Reports claudication, Denies diaphoresis, Denies dyspnea, Denies leg edema and Denies palpitations Respiratory Respiratory: Denies cough, Denies dyspnea and Denies hemoptysis Gastrointestinal Gastrointestinal: Denies nausea and Denies vomiting Musculoskeletal Musculoskeletal: Reports arthralgias (posterior left knee pain and swelling. ), Denies back pain, Denies muscle weakness, Denies neck pain, Denies numbness, Reports radiating pain into limb, Denies stiffness and Denies tingling Integumentary/Breasts Skin/Breast: Denies skin pain and Denies wounds Neurologic Neurologic: Denies disequilibrium, Denies dizziness, Denies frequent falls, Denies headache(s), Denies numbness and Denies tingling Endocrine Endocrine: Denies palpitations Past Medical History Past Medical History CARDIAC: Positive Hypertension; Negative Congestive Heart Failure RESPIRATORY: Positive Chronic Obstructive Pulmonary Disease (COPD) GENITOURINARY: Negative Renal Disease ENDOCRINE: Positive Parathyroid Disease; Negative Diabetes Mellitus Type 1 or Diabetes Mellitus Type 2 OTHER HISTORY: Positive Falls Social History SMOKING STATUS: Current every day smoker SECOND HAND EXPOSURE: No ED Exam General Limitations: Present no limitations General appearance: Present alert and in no apparent distress Head Head exam: Present atraumatic and normocephalic Eye Eye exam: Present normal appearance and EOMI ENT ENT exam: Present mucous membranes moist and normal external ear exam Neck Neck exam: Present normal inspection and full ROM Chest Chest inspection: Present normal inspection and symmetric chest wall rise Respiratory Respiratory exam: Present normal lung sounds bilaterally; Absent respiratory distress Cardiovascular Cardiovascular exam: Present regular rate and +S1 Abdominal Exam Abdominal exam: Present soft; Absent distention Expanded Lower Extremity Exam Knee exam: Present normal inspection, full ROM and swelling (small, firm, mobile mass to palpation posterior left knee with no warmth or erythema. No fluctuance. ); Absent tenderness, crepitus or erythema Lower leg exam: Present normal inspection; Absent tenderness, swelling or Homans' sign Ankle exam: Present normal inspection and full ROM Foot/toe exam: Present normal inspection and full ROM Neurovascular/Tendon exam: Present normal capillary refill Gait: observed and normal Back Exam Back exam: Present normal inspection and full ROM Neurological Exam Neurological exam: Present alert Psychiatric Psychiatric exam: Present normal affect Skin Skin exam: Present warm and dry Course Quality Measures none Orders Category Date Time Status US venous doppler LE LT Stat Exams 08/25/24 16:51 Completed CBC Stat Lab 08/25/24 17:01 Completed CMP [Comprehensive Metabolic Panel] Stat Lab 08/25/24 17:01 Completed PT [Prothrombin Time with INR] Stat Lab 08/25/24 17:01 Completed PTT [Partial Thromboplastin Time] Stat Lab 08/25/24 17:01 Completed Vital Signs Vital signs: Vital Signs Temperature 98.6 F 08/25/24 16:57 Pulse Rate 76 08/25/24 16:57 Respiratory Rate 16 08/25/24 16:57 Blood Pressure 136/72 H 08/25/24 16:57 Pulse Oximetry (%) 95 08/25/24 16:57 Oxygen Delivery Method Room Air 08/25/24 16:57 Pulse ox 95% on room air, within normal limits. Extremity Injury, Lower MDM Narrative MDM Narrative:: 64-year-old female with posterior left knee pain sent by PCP for DVT rule out. Vital signs reassuring. Ultrasound today negative for acute DVT. Coag factors within normal limits. Patient data External records reviewed:: [facility] previous records Clinical information provided by:: patient Social determinants that could affect healthcare access:: none Patient has the following chronic illnesses:: Hypothyroidism, hypertension. How is presenting disease/condition affected by chronic disease/condition?: uneffected by Evaluation data The following diagnostics were reviewed and interpreted by me:: lab results and radiology exam(s) Lab and/or radiology exams considered but not ordered:: Considered not ordered. Interpretation Summary: Lower extremity Doppler ultrasound negative for DVT. Coag factors within normal limits. Mild incidental hyponatremia noted on metabolic panel today, appears to be chronic in nature. Atraumatic pain therefore less concern for acute fracture or dislocation therefore imaging was deferred at this time. Ultimately the patient was discharged with plan to follow-up with primary care for further evaluation and management of left knee pain. I discussed with the patient that this may include outpatient Ortho referral if her pain does not resolve within the next several weeks. Advised patient to take Tylenol and ibuprofen as needed for pain. Patient stable at time of discharge. Medications / Prescriptions Medications or Prescriptions considered but not ordered:: Rx given. Medication administrations:: Rx given. Consultations Consultation(s) initiated? (list below): No Diagnosis Extremity Injury, Lower Differential Diagnosis: acute internal derangement of knee and other (Ligamentous injury of knee, Ahumada's cyst, DVT of left lower extremity, neuropathy, PVD. ) Most likely diagnosis given after review of the tests above:: Ahumada's cyst, left knee pain. Admission Indicated Admission indicated?: not indicated Admission Request Was there a request for admission?: No Disposition Plan Disposition Plan: Discharge Discharge Attestation Discharge Attestation: The patient and all family members were given an opportunity to ask questions and understood the discharge instructions. Discharge instructions specifically effects, indications for sooner follow up or return to the emergency department, and the expected course of current diagnosis. Patient condition: Stable Discharge Plan Plan Patient Disposition: HOME (Self Care) Disposition Comment: stable Prescriptions/Referrals Prescriptions/Med Rec: New ibuprofen 800 mg tablet 800 mg PO Q8H PRN (Reason: pain) Qty: 14 0RF acetaminophen [Tylenol] 325 mg tablet 325 mg PO QID PRN (Reason: pain ) Qty: 30 0RF gabapentin 100 mg capsule 100 mg PO QDAY Qty: 30 0RF No Action levothyroxine 75 mcg tablet 75 mcg PO QDAY Patient Comments: TAKE 1 TABLET BY MOUTH EVERY DAY metoprolol succinate 25 mg tablet extended release 24 hr 25 mg PO QDAY Patient Comments: TAKE 1 TABLET BY MOUTH EVERY DAY zolpidem 10 mg tablet 5 mg PO HS PRN (Reason: Insomnia) Patient Comments: TAKE 1 TABLET BY MOUTH EVERY DAY NIGHT NEEDED FOR INSOMNIA losartan-hydrochlorothiazide 50-12.5 mg tablet 1 tab PO QDAY Patient Comments: TAKE 1 TABLET BY MOUTH EVERY DAY Referrals: No Primary/Family,Physician [Primary Care Provider] - In 1 week Problem List Clinical Impression: Posterior left knee pain Impression comment: Follow-up with primary care for reevaluation within the next week. If your symptoms do not improve consider follow-up with orthopedics : Dr. Jamal Howell: Address: [facility] [address] [address], [place] [address] Use ibuprofen or Tylenol every 8 hours as needed for pain. Use gabapentin every 8 hours as needed for nerve pain. Return to the ED if your symptoms worsen or change. Patient/Caregiver Discharge Instructions Education Materials: [place] MARIE Knee Pain of Uncertain Cause Print Language: [place] Stand Alone Forms: Pita Award Info., Patient Portal Info Letter PA/DIRECTOR INSURANCE Supervising Physician PA/DIRECTOR INSURANCE Supervising Physician: Dr. Hollis
== END 2024-08-25 21:23 | disposition home or self-care (01) ==
PROVIDERS: Nurse Practitioner Family; Emergency Provider Emergency Medicine
DX: M25.562 Pain in left knee (principal); E03.9 Hypothyroidism, unspecified; I10 Essential (primary) hypertension; M71.22 Synovial cyst of popliteal space [Baker], left knee
CPT/HCPCS: 36415; 80053; 85025; 85610; 85730; 93971; 99284

== ENCOUNTER → 2024-11-28 | Outpatient (CLI) | payer MEDICARE, SELFPAY ==
--- NOTE | 2024-11-28 10:50 | XR_ITS ---
Examination:Left hip AP, lateral, AP pelvis 3 views Technique: Hip AP lateral, AP pelvis, 3 views Exam date and time:November 28, 2024 1052 hours INDICATIONS: Patient fell 3 months ago with injury to the left hip, left hip pain. FINDINGS: No hip fracture or hip dislocation Subtle sclerosis involving the left femoral head and neck Right hip bones of the pelvis intact IMPRESSION: Subtle sclerosis involving the left femoral head and neck, recommend MRI left hip follow-up pre and postcontrast to exclude osseous metastatic disease.
--- NOTE | 2024-11-28 10:51 | XR_ITS ---
Examination: Lumbar spine, 5 views Technique: Lumbar spine AP, lateral, coned lateral lower lumbar spine, bilateral obliques 5 views Exam date and time: November 28, 2024 1052 hours INDICATIONS: Patient fell 3 months ago with injury to lower back, lower back pain. FINDINGS: Adequate alignment lumbar vertebral bodies No lumbar fracture Diffuse lumbar disc narrowing, advanced L5-S1 IMPRESSION: Diffuse lumbar degenerative disc disease, advanced L5-S1
== END | disposition home or self-care (01) ==
LOC: CDIM 10:32
PROVIDERS: PCP Physician Assistant; Referring Provider Physician Assistant; Visit Provider Physician Assistant
DX: M51.360 Other intervertebral disc degeneration, lumbar region with discogenic back pain only (principal); M25.552 Pain in left hip; S79.912S Unspecified injury of left hip, sequela; W19.XXXS Unspecified fall, sequela
CPT/HCPCS: 72110; 73502

== ENCOUNTER → 2025-01-28 | Outpatient (CLI) | payer MEDICARE, SELFPAY ==
--- NOTE | 2025-01-28 13:30 | XR_ITS ---
Examination: MRI left hip, without contrast Date and time of exam: January 28 2725, 1349 hours INDICATIONS: Left hip pain joint clicking and locking 5 months Technique: Multiple axial sagittal and coronal images of the left hip have been obtained with the Siemens high-resolution 1.5 Eva MRI scanner. Images obtained include T2-weighted fat-suppressed sagittal sections, TR 3500, TE 46, T2 weighted coronal fat suppressed images, TR 3050, TE 84, T2-weighted transverse fat suppressed images, TR 3260, TE 63, proton density transverse images, TR 4720 TE 46, and T1 weighted coronal images, TR 560, TE 13. Findings: Moderate narrowing left hip joint Extensive abnormal serpiginous signal prominent vascular necrosis involving with 50% of the articulating surface of the left femoral head No hip dislocation Small [id number] images also demonstrate superior left hip labral tears coronal image 10 Right hip intact as well as bones the pelvis intact IMPRESSION: Moderate narrowing left hip joint Extensive avascular necrosis left femoral head
== END | disposition home or self-care (01) ==
LOC: SMRI 12:47
PROVIDERS: PCP Internal Medicine; Referring Provider Internal Medicine; Visit Provider Internal Medicine
DX: M87.852 Other osteonecrosis, left femur (principal); M25.852 Other specified joint disorders, left hip
CPT/HCPCS: 73723; A9577

== ENCOUNTER 2025-03-19 08:21 | Outpatient (AMB) | payer MEDICARE, SELFPAY ==
[2025-03-19 08:32] VITALS: BP 145/73; PULSE 99; RESP 20; TEMP 36.5; O2SAT 92; BMI 21.2
--- NOTE | 2025-03-19 08:32 | PD.ORTHCLVIS ---
Vital signs 03/19/25 08:32 Height 1.57 m Height Method Measured Weight 52.787 kg Weight Measurement Method Standing Scale BMI 21.2 BP 145/73 H Blood Pressure Source Automatic Cuff Blood Pressure Location Left Upper Arm Position Sitting Respiration 20 Pulse 99 Pulse Source Monitor Temp 97.7 F Temp Source Temporal Artery Scan Pulse Oximetry (%) 92 L Oxygen Delivery Method Room Air Med/Allergies Allergies & Medications Allergies Penicillins Allergy (Verified 03/19/25 08:38) Medication Reconciliation levothyroxine 75 mcg tablet 75 mcg PO QDAY 05/12/24 [History Confirmed 03/19/25] losartan 50 mg-hydrochlorothiazide 12.5 mg tablet 1 tab PO QDAY 05/12/24 [History Confirmed 03/19/25] Held on 05/14/24. Instructions: Resume on 05/22/24. HOLD until follow up with PCP metoprolol succinate 25 mg tablet,extended release 24 hr 25 mg PO QDAY 05/12/24 [History Confirmed 03/19/25] zolpidem 10 mg tablet 5 mg PO HS PRN Insomnia 05/12/24 [History Confirmed 03/19/25] acetaminophen 325 mg tablet (Tylenol) 325 mg PO QID PRN pain #30 tabs 08/25/24 [Rx Confirmed 03/19/25] gabapentin 100 mg capsule 100 mg PO QDAY nerve pain #30 caps 08/25/24 [Rx Confirmed 03/19/25] ibuprofen 800 mg tablet 800 mg PO Q8H PRN pain #14 tabs 08/25/24 [Rx Confirmed 03/19/25] Exam Exam Patient is in no acute distress and is cooperative with the examination today. Breathing is nonlabored. In no respiratory distress. Patient has no paraspinal tenderness. Spinal deformity cannot be appreciated. The gait of the patient is nonantalgic Bilateral extremities were evaluated and demonstrates sensation intact to light touch. Palpable pedal pulses are present. No significant edema is present. Bilateral knees were examined and the patient has full strength and range of motion.. The right hip was examined. Patient was able to flex to 90 degrees, adduct to 30 degrees, abduct to 40 degrees, internally rotate to 20 degrees, and externally rotate to 20 degrees. Patient has a negative logroll. Stinchfield is negative. The patient is nontender diffusely to touch. The left hip was examined. Patient was able to flex to 90 degrees, adduct to 30 degrees, abduct to 40 degrees, internally rotate to 20 degrees, and externally rotate to 20 degrees. Patient has a positive logroll. The stinchfield is negative. An MRI from January 2025 was reviewed by me today from [facility]. This demonstrates avascular porosis with significant edema of the femoral head. X-rays demonstrate preserved joint spaces with dysplasia Assessment and Plan Problem List (1) Avascular necrosis of bone of left hip: Status: Acute Plan: ASSESSMENT AND PLAN 1. Left hip pain: Left hip pain has persisted for about 6 months, described as more of a popping sensation than pain. The pain extends from the groin to the knee and feels like it is on fire. Previous anti-inflammatory medications, including meloxicam, have not provided relief. An MRI from 01/2025 indicates avascular necrosis with significant deterioration compared to an earlier x-ray. A new x-ray will be conducted today to assess the current state of the hip. If the condition progresses to end-stage, a hip replacement may be considered. Smoking cessation is advised to lower the risk of infection if surgery becomes necessary. Medical clearance from the primary care physician will be required before proceeding with any surgical intervention. A new x-ray will be conducted today to assess the current state of the hip. If the condition progresses to end-stage, a hip replacement may be considered. Smoking cessation is advised to lower the risk of infection if surgery becomes necessary. Medical clearance from the primary care physician will be required before proceeding with any surgical intervention. [place] is currently prescribed for pain management. Follow-up in a few weeks to review x-ray results and smoking reduction progress. 2. Chronic obstructive pulmonary disease (COPD): A diagnosis of COPD is reported but steroids have never been taken for it. Smoking cessation is crucial as continued smoking can exacerbate COPD and complicate potential surgical interventions. Smoking cessation is crucial as continued smoking can exacerbate COPD and complicate potential surgical interventions. Smoking reduction efforts will be monitored during the follow-up visit. 3. Nicotine dependence: Smoking about half a pack a day and more when not using a patch. Smoking cessation is strongly recommended to reduce the risk of infection and improve overall health outcomes. Nicotine patches are not advised due to their high nicotine content. A follow-up appointment will be scheduled in a few weeks to monitor progress in smoking reduction. Smoking cessation is strongly recommended to reduce the risk of infection and improve overall health outcomes. Nicotine patches are not advised due to their high nicotine content. A follow-up appointment will be scheduled in a few weeks to monitor progress in smoking reduction. Follow-up: Follow-up in a few weeks to review x-ray results and smoking reduction progress. Office Procedures GNS Level of Care Nursing/Assessment Patient Status: Initial/New Patient Nursing Assessment/Reassesment: Medication Reconciliation, Update PMH in EMR and Vital Signs Coordination of Care: Complex Care and Chronic Disease 1-5, Education Complex Pt/Fam, Consent,records obtained, informed consent, Results/Orders obtained and Staff clarify orders New Patient Charge New Patient Point Assignment: 1094 New Patient Point Charge: [employer] Level 3 ([id number]) MA Intake Visit Data Collection New Patient or Established: Established Patient (seen at [facility] within 3 years) Reason for Visit:: PAIN LEFT HIP Seen by Clinical Staff ONLY (RN/MA): No Recruitment Director Required: No PCP or OBGYN visit in last 3 months: Yes Hx Now: No Do You Feel Safe at Home: Yes Authorities Contacted: N/A Questionairres Past Medical History Past Medical History Have you ever been diagnosed with any of the following: Cardiology Problems Congestive Heart Failure: No Hypertension: Yes Respiratory Problems Chronic Obstructive Pulmonary Disease (COPD): Yes Smoking: Yes Smoking Cessation Counseling: Yes Smoking Exposure: Yes Genital/Urinary Problems Renal Disease: No Endocrine Problems Diabetes Mellitus Type 1: No Diabetes Mellitus Type 2: No Parathyroid Disease: Yes Other Problems Falls: Yes Subjective Visit Visit for: new patient and hip Immunization / Flu Flu Vaccine in the Last 12 Months: Yes Flu Vaccine Exclusion Criteria: Already Received History of Present Illness Chief complaint: PAIN LEFT HIP Date of injury / onset of symptoms: 6 MONTHS AGO HISTORY OF PRESENT ILLNESS I, Jamal Howell, have obtained verbal consent from the patient, to be recorded during this encounter which may include, but not limited to, medical history, examination, treatment plans, and relevant health information.? Patient was informed that recording will be read and reviewed by myself before inclusion in the medical chart. The patient is a female who presents for left hip pain that she has had for about 6 months now. She is accompanied by her . She reports experiencing a popping sensation in her left hip, which she describes as more prominent than the pain itself. The discomfort is constant throughout the day and is localized to the groin area, occasionally radiating down to her knee. She likens the sensation to a burning feeling. An MRI scan conducted at a local hospital revealed signs of deterioration. She has been using a walker for the past 3 weeks due to feelings of instability. She has not undergone physical therapy, and anti-inflammatory medications have not provided relief. She has been prescribed [place] for pain management but reports no significant improvement. She has previously tried meloxicam and other anti-inflammatories without success. She has a history of smoking, consuming about half a pack per day, and has been considering quitting. She reports no history of heavy alcohol consumption in her younger years. She has been diagnosed with COPD but has never taken steroids for this condition. Personal History Red flag PMH: smoker and cigarettes qd (specify) BMI Counceling provided: No Pain Pain level (0-10): 8 Pain location: groin Pain quality: sharp, aching and burning Pain timing: increases with activity Associated signs & symptoms: other (specify) (POPPING) Ambulatory data Ambulatory device: walker Walking distance (minutes): 1 Treatments Number of previous injections: 0 Improvement with previous injections: No Number of Physical Therapy sessions: 0 Improvement with PT: No Improvement with NSAIDS: no Review of Systems Review of Systems: All systems negative unless otherwise noted in HPI.
--- NOTE | 2025-03-19 08:59 | XR_ITS ---
Examination: Left hip AP, lateral, AP pelvis 3 views Technique: Hip AP lateral, AP pelvis, 3 views Exam date and time: March 19, 2025, 0904 hours INDICATIONS: Left hip pain beginning 6 months ago. FINDINGS: Abnormal sclerosis involving the left femoral head and neck Mild narrowing hip joints No acute hip or pelvic fracture Impression: Abnormal sclerosis involving the left femoral head and neck, differential would include osteoblastic metastatic disease, less likely avascular necrosis Recommend repeat MRI hip follow-up pre and postcontrast
== END 2025-03-19 09:01 | disposition home or self-care (01) ==
LOC: HODSRG 08:21
PROVIDERS: PCP Internal Medicine; Referring Provider Internal Medicine; Supervising Provider Orthopaedic Surgery Adult Reconstructive Orthopaedic Surgery; Visit Provider Orthopaedic Surgery Adult Reconstructive Orthopaedic Surgery
DX: M25.552 Pain in left hip (principal); M25.852 Other specified joint disorders, left hip; J44.1 Chronic obstructive pulmonary disease with (acute) exacerbation; F17.210 Nicotine dependence, cigarettes, uncomplicated; I10 Essential (primary) hypertension
CPT/HCPCS: 73502; 99203; G0463

== ENCOUNTER 2025-04-09 09:01 | Outpatient (AMB) | payer MEDICARE, SELFPAY ==
[2025-04-09 09:49] VITALS: BP 127/72; PULSE 87; RESP 18; TEMP 36.6; O2SAT 90; BMI 21.2
--- NOTE | 2025-04-09 09:49 | PD.ORTHCLVIS ---
Vital signs 04/09/25 09:49 Height 1.57 m Height Method Stated Weight 52.191 kg Weight Measurement Method Standing Scale BMI 21.2 BP 127/72 Blood Pressure Source Automatic Cuff Blood Pressure Location Left Upper Arm Position Sitting Respiration 18 Pulse 87 Pulse Source Monitor Temp 97.8 F Temp Source Temporal Artery Scan Pulse Oximetry (%) 90 L Oxygen Delivery Method Room Air Med/Allergies Allergies & Medications Allergies Penicillins Allergy (Verified 04/09/25 09:50) Medication Reconciliation levothyroxine 75 mcg tablet 75 mcg PO QDAY 05/12/24 [History Confirmed 04/09/25] losartan 50 mg-hydrochlorothiazide 12.5 mg tablet 1 tab PO QDAY 05/12/24 [History Confirmed 04/09/25] Held on 05/14/24. Instructions: Resume on 05/22/24. HOLD until follow up with PCP metoprolol succinate 25 mg tablet,extended release 24 hr 25 mg PO QDAY 05/12/24 [History Confirmed 04/09/25] zolpidem 10 mg tablet 5 mg PO HS PRN Insomnia 05/12/24 [History Confirmed 04/09/25] acetaminophen 325 mg tablet (Tylenol) 325 mg PO QID PRN pain #30 tabs 08/25/24 [Rx Confirmed 04/09/25] gabapentin 100 mg capsule 100 mg PO QDAY nerve pain #30 caps 08/25/24 [Rx Confirmed 04/09/25] ibuprofen 800 mg tablet 800 mg PO Q8H PRN pain #14 tabs 08/25/24 [Rx Confirmed 04/09/25] Exam Exam Patient is in no acute distress and is cooperative with the examination today. Breathing is nonlabored. In no respiratory distress. Patient has no paraspinal tenderness. Spinal deformity cannot be appreciated. The gait of the patient is nonantalgic Bilateral extremities were evaluated and demonstrates sensation intact to light touch. Palpable pedal pulses are present. No significant edema is present. Bilateral knees were examined and the patient has full strength and range of motion.. The right hip was examined. Patient was able to flex to 90 degrees, adduct to 30 degrees, abduct to 40 degrees, internally rotate to 20 degrees, and externally rotate to 20 degrees. Patient has a negative logroll. Stinchfield is negative. The patient is nontender diffusely to touch. The left hip was examined. Patient was able to flex to 90 degrees, adduct to 30 degrees, abduct to 40 degrees, internally rotate to 20 degrees, and externally rotate to 20 degrees. Patient has a positive logroll. The stinchfield is negative. An MRI from January 2025 was reviewed by me today from [facility]. This demonstrates avascular porosis with significant edema of the femoral head. X-rays demonstrate sclerosis of the femoral head with collapse that can be seen on the frog-leg lateral on the most recent x-rays Assessment and Plan Problem List (1) Avascular necrosis of bone of left hip: Status: Acute Plan: Patient is a 64-year-old female with COPD on home oxygen with significant left hip avascular necrosis. We discussed different treatment options. Given that it has collapsed we recommend a total hip replacement as the pain is excruciating. The pain is affecting her quality life and happiness and she has tried anti-inflammatories and conservative treatment. We thus discussed total hip replacement as a reasonable option. She will need a cardiac and medical clearance as she does have COPD. We also discussed that she is a smoker which puts her at high risk for infection. She has attempted smoking cessation and has diminished her smoking significantly. We discussed this puts her at high risk for infection and fracture. Plan The nature and purpose of the total hip replacement, alternative method(s) of treatment, the material risks involved, and the possibility of complications were fully explained to the patient. The patient does NOT have any of the following contraindications to CHASIDY: - Active infection of the hip joint, OR - Active systemic bacteremia, OR - Active skin infection or open wound at surgical site, OR - Neuropathic arthritis, OR - Severe, rapidly progressive neurological disease, OR - Severe medical condition that makes risks of the surgery outweigh the potential benefit The patient was told the most common risks and complications associated with a total hip replacement include, but are not limited to: blood clots in the leg, fatal pulmonary embolism, dislocation of the prosthesis, intraoperative and postoperative fractures of the femur or acetabulum, infection, failure of the prosthesis or grafting materials, complications from anesthesia, reactions to blood transfusions, postoperative leg length inequality, instability of the hip replacement, nerve damage or injury, vascular injury, delayed wound healing, infection, other injury or even . In addition, there are risks associated with anesthesia given during this operation. Also, the patient was told that after undergoing a total hip replacement there may still be persistent pain or disability. The patient was informed that the success of this operation in part depends upon the mechanical devices which are going to be implanted and that these devices can fail or malfunction, and may need to be repaired or replaced and there are no guarantees as to the longevity of this device or its parts and that it or its parts could fail prematurely. The patient was also notified that during the course of surgery, there may be a need to use bone graft from donors, and that any bone graft used will be carefully screened for communicable diseases, including AIDS, hepatitis, Watson-Creutzfeldt, or other diseases, but despite the screening procedures, there is a small chance that they could contract one of these diseases. Finally, the patient was asked to follow completely and fully with all advice and recommended treatments, and that recovery and ultimate outcome are affected by their compliance with recommended treatment. We discussed the risks, benefits and treatment alternatives, and the patient is interested in proceeding with surgery. We will try to set this up as expeditiously as possible. Office Procedures GNS Level of Care Nursing/Assessment Patient Status: Established Patient Nursing Assessment/Reassesment: Medication Reconciliation, Update PMH in EMR and Vital Signs Coordination of Care: Complex Care and Chronic Disease 1-5, Education Complex Pt/Fam, Consent,records obtained, informed consent, Results/Orders obtained and Staff clarify orders Established Patient Charge Established Patient Point Assignment: 95 Established Patient Point Charge: EP Level 3 (80-115) MA Intake Visit Data Collection New Patient or Established: Established Patient (seen at [facility] within 3 years) Reason for Visit:: PAIN LEFT HIP Seen by Clinical Staff ONLY (RN/MA): No Electronic Imaging System Operator Required: No PCP or OBGYN visit in last 3 months: Yes Hx Now: No Do You Feel Safe at Home: Yes Authorities Contacted: N/A Questionairres Past Medical History Past Medical History Have you ever been diagnosed with any of the following: Cardiology Problems Congestive Heart Failure: No Hypertension: Yes Respiratory Problems Chronic Obstructive Pulmonary Disease (COPD): Yes Smoking: Yes Smoking Cessation Counseling: Yes Smoking Exposure: Yes Genital/Urinary Problems Renal Disease: No Endocrine Problems Diabetes Mellitus Type 1: No Diabetes Mellitus Type 2: No Parathyroid Disease: Yes Other Problems Falls: Yes Subjective Visit Visit for: follow up visit and hip Immunization / Flu Flu Vaccine in the Last 12 Months: Yes Flu Vaccine Exclusion Criteria: Already Received History of Present Illness Chief complaint: PAIN LEFT HIP Date of injury / onset of symptoms: 6 MONTHS AGO HISTORY OF PRESENT ILLNESS I, Jamal Dante, have obtained verbal consent from the patient, to be recorded during this encounter which may include, but not limited to, medical history, examination, treatment plans, and relevant health information.? Patient was informed that recording will be read and reviewed by myself before inclusion in the medical chart. The patient is a female who presents for left hip pain that she has had for about 6 months now. She is accompanied by her . She reports experiencing a popping sensation in her left hip, which she describes as more prominent than the pain itself. The discomfort is constant throughout the day and is localized to the groin area, occasionally radiating down to her knee. She likens the sensation to a burning feeling. An MRI scan conducted at a local hospital revealed signs of deterioration. He has been using a pretty significant pain in the left hip. It is very difficult for her to bear weight. She does have a history of COPD. We discussed walking cessation at the last visit and she reports that she is cut down her cigarette significantly. She does use oxygen at night only as she does have obstructive sleep apnea Personal History Red flag PMH: smoker and cigarettes qd (specify) BMI Counceling provided: No Pain Pain level (0-10): 8 Pain location: groin Pain quality: sharp, aching and burning Pain timing: increases with activity Associated signs & symptoms: other (specify) (POPPING) Ambulatory data Ambulatory device: walker Walking distance (minutes): 1 Treatments Number of previous injections: 0 Improvement with previous injections: No Number of Physical Therapy sessions: 0 Improvement with PT: No Improvement with NSAIDS: no Review of Systems Review of Systems: All systems negative unless otherwise noted in HPI.
== END 2025-04-09 09:57 | disposition home or self-care (01) ==
LOC: HODSRG 09:01
PROVIDERS: PCP Internal Medicine; Referring Provider Internal Medicine; Supervising Provider Orthopaedic Surgery Adult Reconstructive Orthopaedic Surgery; Visit Provider Orthopaedic Surgery Adult Reconstructive Orthopaedic Surgery
DX: M25.552 Pain in left hip (principal); M87.852 Other osteonecrosis, left femur; J44.9 Chronic obstructive pulmonary disease, unspecified; Z99.81 Dependence on supplemental oxygen; G47.33 Obstructive sleep apnea (adult) (pediatric); I10 Essential (primary) hypertension
CPT/HCPCS: 99213; G0463